=== PATIENT | male | born 1955 | race Caucasian/White ===

== ENCOUNTER → 2024-05-07 10:21 | Outpatient (REF) | payer MEDICARE, OTHER, SELFPAY | LOC: RCS 10:21 | PROVIDERS: ATTENDING PHYSICIAN Internal Medicine Cardiovascular Disease | DX: I35.0 Nonrheumatic aortic (valve) stenosis (principal) | CPT/HCPCS: 93306 ==

== ENCOUNTER 2024-08-07 06:15 | Day surgery (SDC) | payer MEDICARE, OTHER, SELFPAY ==
[2024-08-07] VITALS (17 sets, daily range): BP systolic 120–168; BP diastolic 70–92; BMI 28.0
[2024-08-07] MEDS: NSS 269 ML IV (07:00)
[2024-08-07 07:12] LABS: Hematocrit 38.4 % (39.0-52.0); Hemoglobin 13.3 g/dL (13.0-18.0); Mean Corp Hgb Conc. 34.6 g/dL (33.0-37.0); Mean Corpuscular Hgb 32.2 pg (27.0-31.0); Mean Platelet Volume 9.6 fL (7.4-10.4); Platelet Count 293 10^3/uL (130-400); Red Blood Cell Count 4.13 10^6/uL (4.70-6.10); Red Cell Dist. Width 12.8 % (11.5-14.5); White Blood Cell Count 10.8 10^3/uL (4.8-10.8)
[2024-08-07] MEDS: LOW STRENGTH ASPIRIN 324 MG PO (07:25)
--- NOTE | 2024-08-07 07:45 | ITS.CL.CATH ---
[facility] - Catheterization
Cardiac Catheterization
Procedure Report:
LEFT HEART CATHETERIZATION
Date of Procedure: August 07, 2024
Referring: Burt Steward MD
PROCEDURES:
1. Left heart catheterization, coronary angiogram.
2. Ultrasound-guided access
INDICATION: Mikal is a 69-year-old gentleman with past medical history of asthma, severe aortic stenosis who presents with progressive dyspnea on exertion for evaluation for TAVR versus SAVR. Echocardiogram from April 2024 shows normal LVEF of 55
to 60%, end-diastolic diameter 5.6 cm, peak and mean transaortic gradients of 99 and 56 mmHg, JUNIE 0.95cm2, PASP 36mmHg.
ACCESS:
1. Right radial artery, 6 Kyrgyz sheath, under ultrasound guidance. Given significant right subclavian artery tortuosity, this access was aborted and right common femoral arterial access was obtained.
2. Right common femoral artery, 6 Kyrgyz sheath, under ultrasound guidance using a micropuncture kit.
HEMODYNAMICS : (mmHg)
AO (s/d) : 113/68
CORONARY FINDINGS
DOMINANCE: Right
LEFT MAIN: The left main artery is a medium caliber vessel which gives rise to the left anterior descending artery and the left circumflex artery. There is moderate diffuse up to 40% plaque in the proximal to mid left main.
LEFT ANTERIOR DESCENDING: The left anterior descending artery is a medium to large caliber vessel which gives rise to 1 medium to large caliber diagonal branch as it courses to the anterior interventricular groove and wraps around the apex. There
is a 70-80% focal shelf-like calcified plaque in the mid LAD at the level of the takeoff of the diagonal branch.
CIRCUMFLEX: The left circumflex artery is a medium caliber vessel which gives rise to multiple small caliber obtuse marginal branches. Mid left circumflex just proximal to OM 3 has a smooth tubular 60% stenosis.
RIGHT CORONARY ARTERY: The right coronary artery is a large-caliber, dominant vessel which gives rise to the right posterior descending artery and the right posterolateral system. It has a high anterior takeoff which was very challenging to
selectively engage initially. We failed using a diagnostic 5 Kyrgyz JR4, 3 DRC, AL-1, MPA and an ARRON. At this point a aortogram was performed which showed its high anterior takeoff and a repeat selective angiogram was performed using a 6 Kyrgyz
AL-1 diagnostic catheter. There is mild to moderate diffuse plaque in the proximal RCA with 2 serial stenoses in the mid RCA. Proximal lesion in the mid RCA is about 70 to 80% stenosed with 30 to 40% stenosis distally.
SEDATION: 113 minutes of procedural sedation was utilized. An independent certified ophthalmic medical technician was present to assist with and help manage the patient's level of consciousness and physiologic status.
RADIATION SUMMARY: Fluoro Time (min): 29.6, Dose (mGy): 1357.6, DAP (Gy.cm2) : 88.4
Closure Device:
1. Vascular band over right radial artery, 12 cc of air.
2. Manual pressure was held over the right common femoral arterial access with successful hemostasis.
CONCLUSIONS
1. 73% focal calcified plaque in the mid LAD at the level of the takeoff of the diagonal branch.
2. Mid left circumflex, just proximal to OM 3, has a smooth tubular 60% stenosis.
3. Right coronary artery has a high anterior takeoff with a 70 to 80% stenosis in the mid RCA.
RECOMMENDATIONS
1. Proceed with CT of chest, abdomen and pelvis per TAVR protocol and CT surgery consult with subsequent discussion at the structural heart meeting in regards to TAVR plus PCI versus SAVR and CABG
2. Wean radial band per protocol.
3. Aggressive management of cardiovascular risk factors.
Copy to: Burt Steward MD
Yue Pitt MD, [facility], [facility]
[2024-08-07 07:49] LABS: ALT (SGPT) 19 U/L (0-50); AST (SGOT) 17 U/L (17-59); Albumin 3.7 g/dl (3.5-5.0); Alkaline Phosphatase 78 U/L (38-126); Blood Urea Nitrogen 25 mg/dl (9-20); Calcium 8.7 mg/dl (8.4-10.2); Carbon Dioxide 27 mmol/L (22-30); Chloride 107 mmol/L (98-107); Estimated Creatinine Clearance 82 ml/min; Glucose 126 mg/dl (70-99); Potassium 4.1 mmol/L (3.5-5.1); Sodium 139 mmol/L (135-145); Total Bilirubin 0.6 mg/dl (0.2-1.3); eGFR > 60.00
[2024-08-07 09:38] LABS: ACT-LR - POC 182 Seconds (116-155)
[2024-08-07] MEDS: NSS 1000 IV (10:15)
--- NOTE | 2024-08-07 11:57 | CONSULT.STRU ---
Consultation
-
Date/Time Consultation Requested: 08/07/2024
Date/Time Consultation Performed: 08/07/2024
Requesting Provider: Dr. Yue Pitt
Performing Provider: GARRETT Bhakta
Reason for Consultation: Aortic stenosis/CAD
Patient History
Physicians
Family Physician: Kay
Outpatient Ancillary Services Manager Therapy: Dr. Jacob Wilson
Primary Ancillary Services Manager Therapy: Dr. Jacob Wilson
History of Present Illness
Patient is a very pleasant 69yo male with known history of aortic stenosis who underwent cardiac cath today. He was found to have multivessel CAD. His echocardiogram from 05/07/2024 is notable for EF 55-60%, AV PG/M/56, JUNIE: 0.95, Peak
velocity:4.98, trace AI, mild MR. He denies palpitations, edema, PND or orthopnea. He has mild SAHA when going up two flights of stair but does note some chest tightness when he exerts himself. It does not radiate and is relieved with rest.
Reviewed the pathophysiology of aortic stenosis with the patient and his as well as his newly diagnosed multivessel CAD. Explained the treatment options of SAVR with CABG and TAVR with PCI. Explained the TAVR evaluation process including
follow up BMP, CT TAVR scan, CT surgery consult and Heart Team discussion. Provided with script for BMP next week, script and appointment for CT TAVR, Consult appointment with Dr. Morrell and a copy of the TAVR education booklet with contact
information. Allowed for and answered questions.
Past Medical History
Past Medical History: Asthma, BPH, CAD, SAHA (mild), Psychiatric (anxiety), Valvular Disease (Severe ) and Other (Essential tremor, BPH, Pre-diabetic, Arthritis, spinal stenosis, Thyroid goiter)
Past Surgical History
Past Surgical History: None
Dental History
Regular Dental Care. Last visit was last week, Dr. Chaya Galan
Family History
Mother: at Age (80s, Cancer)
Father: at Age (93yo, unknown cause)
Social History
Alcohol: Occasional
Drug: Marijuana (vapes and smokes)
Tobacco: Non-Smoker
Personal:
Living: With Spouse
Employment: Retired ([employer])
Allergies
Allergy/AdvReac Type Severity Reaction Status Date / Time
No Known Allergies Allergy Unverified 08/07/24 06:41
Home Medications
�Medication �Instructions �Recorded �Confirmed �Type
acetaminophen 325 mg tablet 650 mg PO Q4H PRN pain 08/07/24 08/07/24 History
(Tylenol)
albuterol 90 mcg/actuation aerosol 1 mcg inhalation Q4H PRN wheezing 08/07/24 08/07/24 History
inhaler
amlodipine 2.5 mg tablet 2.5 mg PO DAILY #90 tabs 08/07/24 Rx
aspirin 81 mg chewable tablet 81 mg PO DAILY #1 tab 08/07/24 Rx
atorvastatin 40 mg tablet 40 mg PO QPM #90 tabs 08/07/24 Rx
budesonide-formoterol HFA 160 2 puff inhalation ONCE 08/07/24 08/07/24 History
mcg-4.5 mcg/actuation aerosol
inhaler (Symbicort)
ibuprofen 200 mg tablet (Advil) 400 mg PO Q8H PRN pain 08/07/24 08/07/24 History
naproxen sodium 220 mg tablet 220 mg PO Q12H PRN pain 08/07/24 08/07/24 History
(Aleve)
pseudoephedrine HCl 120 mg 120 mg PO Q12H PRN nasal congestion 08/07/24 08/07/24 History
tablet,extended release (Sudafed
12 Hour)
tamsulosin 0.4 mg capsule 0.4 mg PO HS 08/07/24 08/07/24 History
STS%
STS %: AVR 0.951%, AVR/CAB.24%
Review of Systems
-
History Source: Patient
General: Reports Sleep Disturbance
HEENT: Reports No Symptoms; Denies Visual Changes
Respiratory: Reports SAHA (mild), Asthma and Other (seasonal allergies)
Cardiac: Reports Chest Pain (mild chest tightness with exertion) and CAD; Denies Palpitations, Nausea or Edema
Abdomen/GI: Reports No Symptoms; Denies Abdominal Pain, Reflux, Nausea, Vomiting or Diarrhea
: Reports Frequency and Nocturia
Musculoskeletal: Reports Joint Pain (arthritis bilateral knees) and Other (spinal stenosis, chronic back pain)
Skin: Reports No Symptoms
Neurological: Reports No Symptoms; Denies CVA, TIA, Headaches or Syncope
Vascular: Reports No Symptoms
Physical Exam
Vital Signs
Temp 97.7 F 08/07/24 07:23
Temp route: Temporal 08/07/24 07:23
Pulse 47 08/07/24 11:45
Resp Rate 18 08/07/24 11:45
Blood pressure 139/73 08/07/24 11:39
Blood pressure extremity used: Left upper arm 08/07/24 09:50
Position: Lying 08/07/24 09:50
MAP (cuff-Hector Monitor) 94 08/07/24 11:39
SaO2 98 08/07/24 11:53
Nasal Cannula flow liters per minute 2 08/07/24 10:03
Oxygen Mode of Delivery Room air 08/07/24 11:53
Can the patient verbally communicate their pain? Yes 08/07/24 11:53
Actual Weight 89.6 kg 08/07/24 06:39
Body Mass Index (BMI) 28.0 08/07/24 06:39
Labs
08/07/24 06:56
08/07/24 07:27
Diagnostic Studies
Echocardiogram 05/07/2024:
CONCLUSIONS
Normal left ventricular size, wall thickness and systolic function. No regional
wall motion abnormalities are seen. LV ejection fraction is 55-60% by visual
assessment. Diastolic function indeterminate.
Normal right ventricular size and function.
Severe aortic stenosis. Peak/mean gradients across the aortic valve are 99/56
mmHg. Using an LVOT diameter of 2.0 cm., the JUNIE = 0.95 cm2.
No prior study for comparison
Indications:
NONRHEUMATIC AORTIC (VALVE) STENOSIS
Rhythm: Bradycardia
Portable Study: No
Technical Quality: Good
Contrast: None
BP: 120 / 70
PROCEDURE
A complete Transthoracic Echocardiogram was performed utilizing two-dimensional
evaluation with color flow and spectral Doppler analysis.
FINDINGS
Left Ventricle
Normal left ventricular size, wall thickness and systolic function. No regional
wall motion abnormalities are seen. LV ejection fraction is 55-60% by visual
assessment. Diastolic function indeterminate.
Right Ventricle
Normal right ventricular size and function.
Left Atrium
Indexed LA volume is within normal range (15-34 mL/m2).
Right Atrium
Normal right atrium.
Mitral Valve
Thickened mitral valve leaflets. Mitral valve opens normally. Mild mitral
regurgitation.
Aortic Valve
Thickened and calcified aortic valve with restricted leaflet motion. Severe
aortic stenosis. Peak/mean gradients across the aortic valve are 99/56 mmHg.
Vmax 4.98 m/s. Using an LVOT diameter of 2.0 cm, the JUNIE = 0.95 cm2. Trace
aortic regurgitation.
Tricuspid Valve
Tricuspid valve opens normally. Mild tricuspid regurgitation. Estimated
pulmonary artery pressure of 36 mmHg, assuming a right atrial pressure of 3
mmHg.
Pulmonic Valve
Not well visualized.
Pericardium\\Pleura
Normal pericardium without effusion.
Aorta
The aortic root is of normal size.
Other Finding
The IVC is of normal size and demonstrates normal respiratory variation.
Interatrial septum is intact with no evidence of shunting by color flow
Doppler. No intracardiac mass or thrombus formation seen.
MEASUREMENTS (Male / Female) Normal Values
2D ECHO
LV Diastolic Diameter PLAX 5.6 cm 4.2 - 5.9 / 3.9 - 5.3 cm
LV Systolic Diameter PLAX 3.4 cm
IVS Diastolic Thickness 0.9 cm 0.6 - 1.0 / 0.6 - 0.9 cm
LVPW Diastolic Thickness 0.8 cm 0.6 - 1.0 / 0.6 - 0.9 cm
LV Relative Wall Thickness 0.3
LVOT Diameter 2.0 cm
LA Area 4C View 21.6 cm2 <= 20 cm2
LA Length 4C 5.9 cm
LA Volume 59.1 cm3 18 - 58 / 22 - 52 cm3
LA Volume Index 28.5 cm3/m2 16 - 34 cm3/m2
RV Diastolic Basal Diameter 3.4 cm 2.0 - 2.8 cm
M-MODE
LA Systolic Diameter MM 4.2 cm
DOPPLER
AV Peak Velocity 458.0 cm/s
AV Peak Gradient 83.9 mmHg
AV Mean Gradient 48.0 mmHg
AV Velocity Time Integral 90.9 cm
LVOT Peak Velocity 151.0 cm/s
LVOT Peak Gradient 9.1 mmHg
LVOT Velocity Time Integral 34.8 cm
LVOT Stroke Volume 109.3 cm3
LVOT Stroke Volume Index 52.5 ml/m2 empty
LVOT Cardiac Index 2937.5 cm3/min
AV Area Cont Eq vti 1.2 cm2
AV Area Cont Eq pk 1.0 cm2
MV Area PHT 3.5 cm2
Mitral E Point Velocity 61.7 cm/s
Mitral A Point Velocity 86.5 cm/s
Mitral E to A Ratio 0.7
LV E' Lateral Velocity 7.4 cm/s
Mitral E to LV E' Lateral Ratio 8.4
LV E' Septal Velocity 6.4 cm/s
Mitral E to LV E' Septal Ratio 9.6
TR Peak Velocity 286.0 cm/s
TR Peak Gradient 32.7 mmHg
Cardiac Catheterization 08/07/2024:
Multivessel CAD
Exam
General: Well Developed, Well Nourished, No Apparent Distress and Comfortable
HEENT: Moist Mucous Membranes, PERRLA and EOMI
Neck: Trachea Midline
Respiratory: Clear; Negative Wheezes, Crackles or Rhonchi
Cardiac: S1/S2, Regular Rhythm and Murmur (Grade III/)
GI: Soft, Non Tender, Non Distended and Normal Bowel Sounds
Rectal: Deferred by Provider
Skin: Warm and Dry
Neuro: AO x 3 and Nonfocal/Grossly Intact
Extremities: Pulses (+2 DP/PT pulses bilateral); Negative Lower Level Edema
Psych: Calm
Assessment / Plan
-
Procedure Type:�Isolated AVR
PERIOPERATIVE OUTCOME ESTIMATE %
Operative Mortality 0.951%
Morbidity & Mortality 4.25%
Stroke 0.825%
Renal Failure 0.585%
Reoperation 2.53%
Prolonged Ventilation 2.39%
Deep Sternal Wound Infection 0.067%
Long Hospital Stay (>14 days) 3.42%
Short Hospital Stay (<6 days)* 58.7%
Procedure Type:�CABG + AVR
PERIOPERATIVE OUTCOME ESTIMATE %
Operative Mortality 1.24%
Morbidity & Mortality 7.12%
Stroke 1.26%
Renal Failure 1.43%
Reoperation 3.3%
Prolonged Ventilation 4.38%
Deep Sternal Wound Infection 0.122%
Long Hospital Stay (>14 days) 3.47%
Short Hospital Stay (<6 days)* 49%
Severe Aortic stenosis:
����������� Continue evaluation for TAVR
����������� BMP 08/14/2024 at [facility]
����������� CT TAVR scan 08/22/2024 at 0930 at
����������� CT surgery consult with Dr. Morrell 08/28/2024
Dental Clearance
����������� Heart team discussion at [facility]
Multivessel Coronary Artery disease:
Heart Healthy Diet
ASA/Statin ordered by Cardiology
Review cardiac cath with heart team to discuss CABG vs PCI
Data Reviewed
-
EKG: Report Reviewed by me (no conduction issues)
Tobacco Curer: Discussed with Physician
Echo: Report Reviewed by me
Labs: Labs Reviewed by me
Old Records: Reviewed (Cardiology office notes)
Total Time Spent with Patient (in minutes): 30
== END 2024-08-07 14:10 | disposition home or self-care (01) ==
LOC: CATH 06:15
PROVIDERS: ATTENDING PHYSICIAN Internal Medicine Interventional Cardiology; OTHER PHYSICIAN Internal Medicine Cardiovascular Disease
DX: I25.10 Atherosclerotic heart disease of native coronary artery without angina pectoris (principal); I35.0 Nonrheumatic aortic (valve) stenosis; R06.09 Other forms of dyspnea; J45.909 Unspecified asthma, uncomplicated; R73.03 Prediabetes; N40.0 Benign prostatic hyperplasia without lower urinary tract symptoms; G25.0 Essential tremor; Z79.82 Long term (current) use of aspirin; Z79.51 Long term (current) use of inhaled steroids
CPT/HCPCS: 99152; 99153; C1894; 80053; 85027; 85347; 93005; 93458; Q9967

== ENCOUNTER → 2024-08-11 10:23 | Outpatient (REF) | payer MEDICARE, OTHER, SELFPAY | LOC: RAD 10:23 | PROVIDERS: ATTENDING PHYSICIAN Internal Medicine Interventional Cardiology | DX: I72.9 Aneurysm of unspecified site (principal); G89.18 Other acute postprocedural pain; I35.0 Nonrheumatic aortic (valve) stenosis | CPT/HCPCS: 93926 ==

== ENCOUNTER → 2024-08-22 09:15 | Outpatient (REF) | payer MEDICARE, OTHER, SELFPAY | LOC: RAD 09:15 | PROVIDERS: ATTENDING PHYSICIAN Nurse Practitioner Adult Health | DX: I35.0 Nonrheumatic aortic (valve) stenosis (principal) | CPT/HCPCS: 74174; 75572; Q9967 ==

== ENCOUNTER → 2024-09-16 09:59 | Outpatient (REF) | payer MEDICARE, OTHER, SELFPAY | LOC: RAD 09:59 | PROVIDERS: ATTENDING PHYSICIAN Internal Medicine Endocrinology, Diabetes & Metabolism | DX: E04.9 Nontoxic goiter, unspecified (principal) | CPT/HCPCS: 76536 ==

== ENCOUNTER 2024-10-06 05:03 | Inpatient (IN) | payer MEDICARE, OTHER, SELFPAY ==
[2024-09-29 08:47] VITALS: BMI 28.8
[2024-09-29 09:36] LABS: % Basophils 0.4 % (0-2); % Eosinophils 2.5 % (0-6); % Immature Granulocytes 0.5 % (0-0.5); % Lymphocytes 12.6 % (20.5-51.1); Absolute Eosinophils 0.2 10^3/uL (0-0.7); Absolute Lymphocytes 1.1 10^3/uL (1.2-3.4); Absolute Monocytes 0.5 10^3/uL (0.1-0.6); Absolute Neutrophils 6.5 10^3/uL (1.4-6.5); Hematocrit 40.4 % (39.0-52.0); Hemoglobin 13.6 g/dL (13.0-18.0); Mean Corp Hgb Conc. 33.7 g/dL (33.0-37.0); Mean Corpuscular Hgb 32.2 pg (27.0-31.0); Mean Corpuscular Volume 95.7 fL (80.0-94.0); Mean Platelet Volume 9.8 fL (7.4-10.4); Nucleated Red Blood Cells % 0 % (-); Platelet Count 285 10^3/uL (130-400); Red Blood Cell Count 4.22 10^6/uL (4.70-6.10); Red Cell Dist. Width 12.2 % (11.5-14.5); White Blood Cell Count 8.4 10^3/uL (4.8-10.8)
[2024-09-29 09:44] LABS: INR 1.08; PT 14.3 Sec (11.4-14.6)
[2024-09-29 09:45] LABS: APTT 28.5 Sec (23.4-35.0)
[2024-09-29 10:04] LABS: ALT (SGPT) 20 U/L (0-50); AST (SGOT) 21 U/L (17-59); Alkaline Phosphatase 83 U/L (38-126); Blood Urea Nitrogen 24 mg/dl (9-20); Carbon Dioxide 26 mmol/L (22-30); Chloride 105 mmol/L (98-107); Direct Bilirubin 0.1 mg/dl (0.0-0.4); Estimated Creatinine Clearance 79 ml/min; Glucose 111 mg/dl (70-99); Potassium 4.9 mmol/L (3.5-5.1); Sodium 140 mmol/L (135-145); Total Bilirubin 0.7 mg/dl (0.2-1.3); Total Protein 6.5 g/dl (6.3-8.2); eGFR > 60.00
[2024-09-29 10:09] LABS: Urine Albumin Negative (Neg - Trace); Urine Bilirubin Negative (Negative); Urine Character Clear (Clear); Urine Color Yellow; Urine Glucose Negative (Negative); Urine Ketone Negative (Negative); Urine Leukocyte Negative (Negative); Urine Nitrite Negative (Negative); Urine Occult Blood Negative (Negative); Urine Urobilinogen Negative (Neg - 1+)
[2024-09-29 10:33] LABS: Glycohemoglobin (HgbA1c) 5.6 % (4.0-5.6)
--- NOTE | 2024-09-29 12:37 | CM ---
spoke with pt in PAT, we discussed preop teaching including sternal and driving restrictions. he is prev indep, lives with his in a 2 story home with 1 step to enter. he denies any dme's. he has the ct surgery book, soap and instructions. he is
agreeable to a f/u visit from the ct transitional care nurses after dc. plan is for AVR/CABG 10/06. cm role explained and all questions answered.
[2024-10-06] VITALS (12 sets, daily range): BP systolic 88–154; BP diastolic 55–91; BMI 27.5
[2024-10-06] MEDS: PROTONIX 40 MG PO (05:40)
[2024-10-06] MEDS: LOPRESSOR 25 MG PO (05:40)
[2024-10-06] MEDS: MAGNESIUM OXIDE 500 MG PO (05:40)
[2024-10-06] MEDS: BACTROBAN 2% OINTMENT 1 APPLIC NASAL ×2 (05:40→19:32)
--- NOTE | 2024-10-06 06:00 | PTCARENOTE ---
Pt arrived to CVICU for SDA, CABG, AVR. pt was clipped, ABO lab drawn, CHG wipes provided, x2 home showers confirmed. Pt answered all admission questions. home medications confirmed. pre-op medications administered. all jewelry removed and given to
pt's . copy of living will placed in paper chart. pre-op checklist reviewed with pt. at bedside. awaiting CVOR.
--- NOTE | 2024-10-06 06:13 | W.CVOR.SURPR ---
CVOR Surgeon Immed Pre Op
-
I have examined this patient prior to performance of the scheduled procedure.
The patient's condition is unchanged from the time of the dictated/written History and
Physical and the patient is able to undergo the scheduled procedure.
Sternotomy AVR (bio) poss root enlargement, CABG + JAKE Clip
[2024-10-06 06:58] LABS: ACT+ - POC 101 Seconds (82-134)
[2024-10-06 07:50] LABS: Urine Albumin Trace (Neg - Trace); Urine Bilirubin Negative (Negative); Urine Character Clear (Clear); Urine Color Yellow; Urine Glucose Negative (Negative); Urine Ketone Negative (Negative); Urine Leukocyte Negative (Negative); Urine Nitrite Negative (Negative); Urine Occult Blood 4+ (Negative); Urine Specific Gravity 1.025 (<1.030); Urine Urobilinogen Negative (Neg - 1+)
[2024-10-06 08:27] LABS: Urine Amorphous Seen
[2024-10-06 08:29] LABS: Urine White Cell 0-2 /HPF (0-5)
--- NOTE | 2024-10-06 08:34 | CM ---
Reviewed chart. Mr. Brandon is in the operating room today. Prior to admission he resides with his spouse in a two story home with one step to enter. Prior to admission he was independent with ambulation and adls. He does not have any DME in the
home. Medical work-up in progress. The discharge plan is to return home with his spouse and a home visit by the Transitional Care Nurse when medically stable.
[2024-10-06 09:16] LABS: ACT+ - POC 565 Seconds (82-134)
[2024-10-06 09:33] LABS: B.E. - POC 2.2 mmol/L; Glucose - POC 120 mg/dl (70-99); HCO3 - POC 29 mmol/L (21-28); Hematocrit - POC 39 % PCV (42-52); Hemodilution- POC Yes; Hemoglobin Calculated - POC 13.2; Ionized Calcium - POC 1.24 mmol/L (1.15-1.33); O2 Saturation %Calculated-POC 99.8 % (94-98); PCO2 - POC 52 mmHg (35-48); PO2 - POC 265 mmHg (83-108); POC Comment PRE; Potassium - POC 3.9 mmol/L (3.5-5.1); Sodium - POC 142 mmol/L (136-145); pH - POC 7.36 (7.35-7.45)
[2024-10-06 09:46] LABS: ACT+ - POC 682 Seconds (82-134)
[2024-10-06 10:04] LABS: B.E. - POC 2.3 mmol/L; Glucose - POC 176 mg/dl (70-99); HCO3 - POC 28 mmol/L (21-28); Hematocrit - POC 27 % PCV (42-52); Hemodilution- POC Yes; Hemoglobin Calculated - POC 9.3; Ionized Calcium - POC 1.05 mmol/L (1.15-1.33); O2 Saturation %Calculated-POC 99.6 % (94-98); PCO2 - POC 46 mmHg (35-48); PO2 - POC 190 mmHg (83-108); POC Comment CPB; Potassium - POC 5.4 mmol/L (3.5-5.1); Sodium - POC 138 mmol/L (136-145); pH - POC 7.39 (7.35-7.45)
[2024-10-06 10:16] LABS: ACT+ - POC 614 Seconds (82-134)
[2024-10-06 10:34] LABS: Glucose - POC 170 mg/dl (70-99); HCO3 - POC 26 mmol/L (21-28); Hematocrit - POC 36 % PCV (42-52); Hemodilution- POC Yes; Hemoglobin Calculated - POC 12.2; Ionized Calcium - POC 1.11 mmol/L (1.15-1.33); O2 Saturation %Calculated-POC 99.8 % (94-98); PCO2 - POC 42 mmHg (35-48); PO2 - POC 232 mmHg (83-108); POC Comment CPB; Potassium - POC 4.5 mmol/L (3.5-5.1); Sodium - POC 140 mmol/L (136-145)
[2024-10-06 10:47] LABS: ACT+ - POC 647 Seconds (82-134)
[2024-10-06 11:21] LABS: B.E. - POC 1.4 mmol/L; Glucose - POC 146 mg/dl (70-99); HCO3 - POC 25 mmol/L (21-28); Hematocrit - POC 35 % PCV (42-52); Hemodilution- POC Yes; Ionized Calcium - POC 1.09 mmol/L (1.15-1.33); PCO2 - POC 33 mmHg (35-48); PO2 - POC 373 mmHg (83-108); POC Comment WARM; Potassium - POC 4.1 mmol/L (3.5-5.1); Sodium - POC 141 mmol/L (136-145); pH - POC 7.48 (7.35-7.45)
[2024-10-06 11:24] LABS: ACT+ - POC 131 Seconds (82-134)
[2024-10-06] MEDS: ANCEF 10 IV ×2 (11:31)
[2024-10-06 11:37] LABS: ACT+ - POC 353 Seconds (82-134)
[2024-10-06 11:58] LABS: B.E. - POC -0.1 mmol/L; Glucose - POC 123 mg/dl (70-99); HCO3 - POC 27 mmol/L (21-28); Hematocrit - POC 31 % PCV (42-52); Hemodilution- POC Yes; Hemoglobin Calculated - POC 10.6; Ionized Calcium - POC 1.44 mmol/L (1.15-1.33); O2 Saturation %Calculated-POC 99.7 % (94-98); PCO2 - POC 55 mmHg (35-48); PO2 - POC 229 mmHg (83-108); POC Comment POST; Potassium - POC 3.8 mmol/L (3.5-5.1); Sodium - POC 143 mmol/L (136-145)
[2024-10-06 12:01] LABS: ACT+ - POC 164 Seconds (82-134)
--- NOTE | 2024-10-06 12:36 | W.PN.CT.SURG ---
CT Surgery Operative Note
-
CARDIAC SURGERY OPERATIVE REPORT
Preoperative Diagnosis: Aortic valve stenosis with multivessel coronary artery disease
Postoperative Diagnosis: Same
Procedure(s) Performed:
1. Status from with aortic and right atrial cannulation
2. Coronary artery bypass grafting x 2 (In situ BURNS to LAD -with revision of BURNS to LAD bypass more distally, Ao to RSVG to RPDA)
3. Surgical aortic valve replacement [27 mm bioprosthetic valve]
4. Endoscopic harvest of the right lower extremity for vein
5. Trans-esophageal echocardiography
6. Placement temperature with pacing wire
7. Transonic flow probe assessment of grafts
8. Left atrial appendage exclusion [35 mm clip]
Date of Surgery: 10/06/2024
Comorbidities:
1. Severe aortic valve stenosis, symptomatic
2. Multivessel coronary disease involving bifurcation of the LAD and diagonal
3. 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
4. Prediabetes
5. Asthma
6. Extremely large thyroid goiter
7. CAD
8. Anxiety
9. Arthritis
10. Spinal stenosis
Attending Surgeon: Alan Morrell MD, MS
Assistants: Rossana Cheng PA-C (present and necessary to plant attendant or assistant operator, suction, exposure, suture management, and wound closure under my direction) & Nery Martinez PA-C (endo vein harvest)
Anesthesiology: Fredrick Corona MD and Kong Arevalo CRNA
Scrub and Circulating RNs: Nj Benavides, NELA, Valdez Galindo RN
Greenhouse Florist: Natalie Carmichael CCP
Anesthesia: GETA
EBL: per perfusion records
Products: None, just 2 bowls of scavenged blood (cell saver)
CPB Time: 105 minutes
Aortic Cross Clamp Time: 86 minutes
Indication(s) for Procedures: This is a 69-year-old male with severe aortic valve stenosis. As part of his preoperative workup he underwent left heart cath which for multivessel coronary disease. The appearance of his LPL branch of the left side
system was extremely small and he would likely need just 2 bypass grafts as his right coronary artery was dominant and supplied a significant portion of the inferior wall. Multidisciplinary team discussion at our structural heart clinic deemed him
appropriate for surgical valve replacement with CABG with possible plans for future TAVR in [facility]. He had a relatively small annulus by TAVR CT however given the appearance of his bicuspid valve and my own individual measurement I felt that he had a
much larger annulus.
Aortic Valve Description: Bicuspid valve, type I Perla classification with left right fusion, elliptical shaped annulus with left and right coronary arteries in their normal anatomic positions. There was a moderate degree of calcification
infiltrating into the annulus.
Conduit(s) Quality:
BURNS -average/small in size however there was good flow, the distal end of the BURNS was dissected after grafting onto the LAD after the diagonal bifurcation and so this was redone more distally with excellent flow
RSVG -good/relatively uniform with some varicosities but overall good conduit
Target(s) Quality:
RCA/PDA -good/eccentric plaque, accommodated a 1.5 to 2 mm probe. There is excellent flow with test dosing of antegrade revealing a flow of approximately 50 cc at a pressure of 80 mmHg. Flow probe assessment demonstrated a mean flow in the mid 30s
with a low pulsatility index
LAD -although there was good visual flow in the LAD, it was quite a small target accommodating only a 1.0 to 1.5 mm shunt. I initially grafted the BURNS to LAD just after the diagonal bifurcation. Initially there was good visual flow in the LAD
territory however coming off of cardiopulmonary bypass and using the Transonic flow probe there was minimal flow with a very high pulsatility index. My visual inspection of the graft was suspicious for a dissection at the distal hodgson and so I
elected to give a low dose of heparin ligate the distal BURNS graft and tested. There is excellent flow in the habematolel BURNS graft. A small coronary arteriotomy was then made more distal to the previous anastomosis and there was decent flow in the
habematolel LAD. I then performed a new end-to-side distal anastomosis and retested with the flow probe. There was much better mean flow in the high teens to mid 20s with a lower pulsatility index.
Findings: LVEF on intraoperative JOJO was 65% and 65% post procedure with no regional wall motion abnormalities. There was trace prosthetic PVL or AI with a pressure half-time the 700s. Mean gradient across the prosthesis was 8 mmHg. aortic valve was
a type I Perla classification with left right fusion. The left right coronary ostium with normal anatomic positions. There was moderate degree of infiltration of calcium to the annulus. The ends itself was an oblique/elliptical shape. Were
able to accommodate a 27 mm bioprosthesis. The LVOT did narrow down according to the TAVR CT scan. The aortic valve was implanted using a total of 16 nonpledgeted 2 Ethibond sutures with core knots. The BURNS was harvested in a skeletonized
fashion. Following bypass grafting, test dose cardioplegia was given down each distal and confirmed patency and hemostasis. Each distal was probed both proximally and distally to confirm disease and patency, respectively. There were no new regional
wall motion abnormalities. However, coming off cardiopulmonary bypass I used the Transonic flow probe to assess the grafts. There is excellent flow in the vein graft. There was little to no flow in the BURNS graft. Normal approximately in all way
down to the midportion. On further evaluation at the distal end there appeared to be a dissection at the hodgson of the graft. This was not satisfactory and so I elected to reheparinized and used 2 medium clips to ligate the distal BURNS graft and
transected. A bulldog was replaced onto the proximal BURNS graft and then released which revealed excellent habematolel flow in the BURNS graft. A small coronary arteriotomy was then created and a 1.0 mm shunt was inserted into the LAD. There is
excellent habematolel flow in the LAD vessel. A new end-to-side anastomosis was created with 8-0 Prolene and secured with a micro core knot. Reassessment with a flow probe demonstrated a mean flow in the high teens to 20 mmHg with a lower pulsatility
index of 4. He had no significant ST changes, did not require any blood products, we were able to scavenged approximately 2 bowls of Cell Saver blood from the field. He did not require any inotropic support. He was initially in a heart block
rhythm and then regained his own habematolel sinus rhythm in the 50s and was hemodynamically stable there.
Specimen(s): Aortic valve leaflets.
Prosthesis:
1. 35 mm clip, serial number: [id number].
2. 27 mm Marcus Inspiris Resilia valve, serial #[id number]
Description of Procedure: The patient was taken to the operating room. Their identity and procedure to be performed were verified and they were positioned supine on the operating table. Induction via general anesthesia with endotracheal intubation
was performed and central venous access and arterial monitoring were inserted. A preoperative transesophageal echocardiogram was performed. The patient was then prepped and draped from chin to feet in a sterile fashion. A preoperative time-out was
performed with all members of the team present. A midline chest incision was performed along with median sternotomy. Simultaneous endoscopic access of the right lower extremity for saphenous vein harvest was obtained along with administration of an
initial 5,000 units of IV heparin. A RulTract sternal retractor was positioned to exposure the left internal mammary bed. The mammary was harvested in a skeletonized fashion and found to have good flow. A medium clip was applied to the distal end of
the mammary after dividing it. It was wrapped in a papaverine soaked RayTec and replaced back into the left hemithorax. The RulTract was exchanged for a median sternal retractor. The innominate vein was isolated. Full heparinization was given (a
total of 40,000 units). I created a pericardial well. The aortic cannulation site was chosen where it was soft, pliable, and free of calcium. Cannulation was performed with an arterial cannula in the ascending aorta and a triple-stage venous cannula
through the right atrial appendage. The arterial cannula line had an appropriate bounce and correlating pressures with test dosing. Next, a root vent/antegrade cannula was inserted into the ascending aorta. The ACT was confirmed to be over 400 and
retrograde autologous priming was performed before commencing cardiopulmonary bypass. The pulmonary artery was away from the aorta to facilitate a clamp site. The aortic cross-clamp was placed after decreasing the flow on the bypass and
mean arterial pressure. A total of 1.2L initial dose of antegrade Del-Nido cardioplegia solution was given and planned for re-dosing every 75 minutes as necessary. There was rapid electro-mechanical arrest of the heart at 400 cc of cardioplegia. The
left ventricle was observed for distention on echocardiogram and manual palpation. Cold slush was placed into a sponge and topically on the RV while we systemically cooled to 34 degrees centigrade.
I positioned the heart to expose the distal right coronary at the posterior descending artery. A muckleshoot blade was used to expose the coronary and perform the arteriotomy. Coronary Nava scissors were used to enlarge the incision. The saphenous vein
was trimmed and beveled to an appropriate size. The distal anastomosis was performed using 7-0 prolene in an end-to-side fashion. Antegrade cardioplegia was administered into the graft. Appropriate hemostasis and flow were confirmed. The graft was
measured for length to the aorta and cut. A suitable target on the mid/distal left anterior descending just after the diagonal takeoff was identified. We dissected and prepared the distal target in a similar fashion. We retrieved the BURNS from the
chest and created a pericardial opening while being cognizant of the phrenic nerve to facilitate the course of the mammary. The distal end of the mammary was prepped and beveled to size. We verified orientation and length of the ARRON and found brisk
flow. An end-to-side anastomosis was created with a 7-0 prolene. We temporarily released the bulldog clamp on the mammary to inspect flow. Perfusion to the LAD territory was visualized and hemostasis was confirmed. The bull clamp was replaced on the
mammary.
Carbon dioxide was used to flood the field. I turned my attention to the aortic valve and manually identified the location of the right coronary take off. An aortotomy was made approximately 1.5cm above the sinotubular junction. The location of both
left and right coronary vessels were visualized in the root. The aortic valve was inspected and found to be heavily calcified. The leaflets were excised and sent for pathological assessment. The annulus was debrided of any calcium. The root and left
ventricular outflow tract were thoroughly irrigated to remove any debris. A total of 16, nonpledgeted 2-0 ethibond annular sutures were placed [id number] circumferentially. These were brought through the sewing cuff of the prosthetic valve which
as then parachuted into place. The left and right coronary ostia were visualized and were unobstructed by the valve. A Cor-Knot device was used to secure the annular sutures. The valve was inspected and was well seated. The aortotomy was
approximated with 4-0 prolene in two layers. The heart was filled and the root was distended with antegrade cardioplegia to make final assessment of graft length and orientation. I created 1 aortotomy using a #11 blade then a 4.0mm aortic punch
above the aortic suture line. The proximal anastomoses were created in an end-to-side fashion using 6-0 prolene. At the same time, we started to re-warm to 36.5 degrees centigrade. The bulldog clamp was removed from the mammary and temporary bipolar
ventricular pacing wires were placed on the base of the right ventricle. The patient was placed in a Trendelenburg position and flows on bypass were lowered. The aortic cross clamp was removed and flows were slowly brought back up. The aortotomy
appeared hemostatic. All bypass grafts were inspected and were free from kinking or twisting. The distal and proximal anastomoses appeared hemostatic. De-airing maneuvers were performed. Transesophageal echocardiography revealed no significant
paravalvular leak and appropriate prosthetic function. Once de-airing was satisfactory, the root vent was removed. After verifying acceptable parameters, we initiated weaning from cardiopulmonary bypass. Once we were off cardiopulmonary bypass, the
venous cannulas was clamped and removed. A test dose of protamine was administered and the patient was monitored for any adverse reaction before resuming protamine. Once half of the protamine dose was delivered, pump suckers were turned off and the
systolic blood pressure was lowered for aortic decannulation. The aortic cannula was removed and pursestrings were tied down. All cannulation sites were oversewn with a 4-0 prolene. The aortic line, proximal, and distal coronary anastomoses were
hemostatic. Transonic flow probe was used to assess the graft which had excellent flow in the vein graft. There was very marginal if any flow in the BURNS graft. Elected to give an additional 20,000 units of heparin at this point and target an ACT
of over 300. I then placed an off-pump retractor to expose the LAD at the BURNS anastomosis. This was then clipped and transected which demonstrated excellent flow in the habematolel BURNS graft. There was very likely a small dissection at the hodgson
obstructing flow. More distally to the previous anastomosis a small coronary tree artery was created and enlarged with Nava scissors. There is excellent flow in the habematolel vessel. This fit a 1.0 mm shunt. A new end to side anastomosis was
created 8-0 Prolene and secured the micro core knot. Transonic flow probe assessment of the BURNS now hide more more appropriate flows. At this point we resumed giving protamine to reverse the heparin effect. The mammary bed was inspected and
hemostasis was confirmed. Once the mediastinum was hemostatic, a 19Fr Jeff drain was placed in the left pleural cavity and two 24Fr Jeff drains were placed within the pericardium. The sternum was approximated with 4#7 single and 3 #8 double
stainless steel wires. Fascia was approximated with #1 vicryl suture. The subcutaneous, dermis and epidermis were closed in layers in a running fashion. The skin wound was cleansed and dressed.
All instrument, sponge, and needle counts were confirmed to be correct x 2 at the end of the operation. The patient was transferred to the cardiac intensive care unit in critical but stable condition.
I, Dr. Alan Morrell, was present, scrubbed for, and performed all critical elements of this procedure.
Alan Morrell MD, MS
Cardiothoracic Surgeon
[facility]
This operative dictation was created using the Palm dictation system. Please excuse any grammatical, typographical, or 'sound alike' errors
[2024-10-06 12:50] LABS: Glucose - Point of Care 122 mg/dl (70-99)
[2024-10-06 12:57] LABS: Hemoglobin 10.5 g/dL (13.0-18.0); Platelet Count 179 10^3/uL (130-400)
[2024-10-06 12:58] LABS: B.E. 0.9 mmol/L; HCO3 26.6 mmol/L (21-28); Ionized Calcium 1.15 mMOL/L (1.15-1.33); O2 Saturation % 99.8 % (94-98); PCO2 46 mmHg (35-48); PO2 137 mmHg (83-108); Potassium 4.3 mMOL/L (3.5-5.1); Sodium 136 mMOL/L (136-145); pH 7.37 (7.35-7.45)
--- NOTE | 2024-10-06 13:00 | PTCARENOTE ---
Pt arrived from CV[facility] to CVICU at 1245. Intubated and sedated on Precedex at 0.5mcg/kg/hr. Pt SB with HR 48. BP 112/48 MAP 63. Currently on Levo at 6mcg/min. PA 34/17, CVP 8, CO 4.06, CI 2.03, SVR 1182. Epicardial V wire connected, box off. Core temp
97, Clive hugger in place. #8ET tube in place at 23cm right lip. Oral care completed. Vent set to SIMV, FiO2 40%, rate 14, PEEP 5, Pressure support 5, TV 600. Pulse oximetry 100%. Mediastinal CT (x2) and left pleural chest tube in place to -20
suction, no sign of air leak or crepitus, drainage red in color. Bowel sounds hypoactive. Clay catheter in place draining yellow urine. Clay care competed. Midsternal incision approximated and IVÁN. Right leg incision with NICKI wrap overlay in
place. Right groin puncture approximated and WHEEL MOLDER. Right IJ cordis in place with Kearny Bakari catheter at 48cm. Left radial Wykoff intact. Pt remains on insulin gtt per glycemic protocol. Post-op labs collected. Post-op EKG and X-ray completed.
[2024-10-06 13:04] LABS: Mixed Venous O2 Saturation 70.6 %
[2024-10-06 13:08] LABS: Blood Urea Nitrogen 19 mg/dl (9-20); Estimated Creatinine Clearance 88 ml/min; Glucose 118 mg/dl (70-99); Magnesium 2.5 mg/dl (1.6-2.3)
[2024-10-06 13:11] LABS: INR 1.72; PT 20.4 Sec (11.4-14.6)
[2024-10-06 13:12] LABS: APTT 34.7 Sec (23.4-35.0)
[2024-10-06] MEDS: NSS 500 IV (13:44)
[2024-10-06] MEDS: CALCIUM GLUCONATE 100 IV ×3 (13:44→21:02)
[2024-10-06] MEDS: NEURONTIN PO (13:45)
[2024-10-06] MEDS: TYLENOL PO (13:45)
[2024-10-06 14:14] LABS: Glucose - Point of Care 104 mg/dl (70-99)
--- NOTE | 2024-10-06 14:44 | CON.INTV ---
Consultation
Consultation Request
Date/Time Consultation Requested: 10/06/24
Date/Time Consultation Performed: 10/06/24
Performing Provider: Joann
Reason for Consultation: CVICU
Medical History
-
History of Present Illness:
Patient is a 69-year-old male with previous history of CAD, severe aortic stenosis with symptoms of shortness of breath and fatigue presenting for elective intervention. Outpatient workup demonstrating progression of valve disease with clinical
status deterioration. Underwent bypass surgery x 2 with surgical aortic valve replacement with bioprosthetic valve on 10/06/2024. Tolerated procedure well. Postoperatively transferred to CVICU for further management.
Past Medical History
Past Medical History: Other (see list below)
Social History
Tobacco: Non-smoker
Alcohol: None
Drug: None
Family History
Family History: Reviewed & Not Pertinent
Allergies / Home Medications
Allergies
Allergy/AdvReac Type Severity Reaction Status Date / Time
No Known Allergies Allergy Unverified 08/07/24 06:41
Home Medications
�Medication �Instructions �Recorded �Confirmed �Last Taken �Type
acetaminophen 325 mg tablet 650 mg PO Q4H PRN pain 08/07/24 10/06/24 10/05/24 22:00 History
(Tylenol)
budesonide-formoterol HFA 160 2 puff inhalation ONCE 08/07/24 10/06/24 10/06/24 04:00 History
mcg-4.5 mcg/actuation aerosol Lung/Breathing Issues
inhaler (Symbicort)
ibuprofen 200 mg tablet (Advil) 400 mg PO Q8H PRN pain 08/07/24 10/06/24 10/01/24 22:00 History
naproxen sodium 220 mg tablet 220 mg PO Q12H PRN pain 08/07/24 10/06/24 09/30/24 22:00 History
(Aleve)
pseudoephedrine HCl 120 mg 120 mg PO PRN PRN nasal congestion 08/07/24 10/06/24 09/29/24 22:00 History
tablet,extended release (Sudafed
12 Hour)
tamsulosin 0.4 mg capsule 0.4 mg PO HS Urinary Issue 08/07/24 10/06/24 10/05/24 22:00 History
albuterol sulfate 90 mcg/actuation 2 puff inhalation Q6H PRN asthma 09/25/24 10/06/24 10/05/24 22:00 History
aerosol inhaler
amlodipine 2.5 mg tablet 2.5 mg PO HS Blood Pressure 09/25/24 10/06/24 10/03/24 21:00 History
aspirin 81 mg chewable tablet 81 mg PO HS Blood Clot 09/25/24 10/06/24 10/05/24 22:00 History
Prevention/Tx
methimazole 5 mg tablet 2.5 mg PO DAILY Thyroid 09/25/24 10/06/24 10/05/24 22:00 History
atorvastatin 40 mg tablet 40 mg PO QPM High Cholesterol 10/06/24 10/06/24 10/05/24 22:00 History
Review of Systems
-
History Source: Patient
All other systems: Negative unless noted
Vitals / Labs / Diagnostic Testing
Vital Signs
Temp Pulse Resp BP Pulse Ox
98.4 F 48 14 154/91 100
10/06/24 14:00 10/06/24 14:00 10/06/24 14:00 10/06/24 05:37 10/06/24 14:40
Lab Data
10/06/24 12:40
Laboratory Results
10/06/24
12:40
PT 20.4 H
INR 1.72
APTT 34.7
pH 7.37
pCO2 46
pO2 137 H
HCO3 26.6
O2 Delivery Level
Diagnostic Testing:
Physical Exam
-
HEENT: Normocephalic, Anicteric and Moist Mucous Membranes
Cardiovascular: S1/S2 and Regular Rhythm
Respiratory: Clear, Non-Labored Respirations and Other (chest tubes)
GI: Soft, Non Distended and Normal Bowel Sounds
Neurology: Awake, Alert, Oriented, No Motor Deficits and Other (extubated, doing well)
Skin: Warm, Dry and Other (incision CDI)
General: Comfortable, Pain and Other (NAD)
Assessment
-
Patient is a 69-year-old male with previous history of CAD, severe aortic stenosis with symptoms of shortness of breath and fatigue presenting for elective intervention. Outpatient workup demonstrating progression of valve disease with clinical
status deterioration. Underwent bypass surgery x 2 with surgical aortic valve replacement with bioprosthetic valve on 10/06/2024. Tolerated procedure well. Postoperatively transferred to CVICU for further management.
Severe status post AVR, MV CAD status post CABG x 2 10/06/24
Shortness of breath/fatigue
Postoperative anemia
Small PFO on ECHO, stage II DD
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
Prediabetes
Asthma
Elevated PSA
Thyroid goiter
Anxiety
Spinal stenosis
Arthritis
Plan
S/p Cab x 2, AVR POD #0
Titrate off pressors per protocol
ECHO reviewed with normal function, but has diastolic dysfunction/moderate LVH, small PFO
PA catheter readings reviewed
Management of chest tubes per primary service
Pain control
RASS goal of 0 to -1
Intubated for procedure, extubated and doing well
ABG(s) reviewed
CXR with small effusion, low lung volumes, lines/tubes in place
Extubated per protocol
Maintain supplement oxygen as needed
Prior history of pulmonary disease: asthma/controlled on symbicort/albuterol
No prior PFTs for review
Can resume home inhalers/add nebulizers if needed
Aspiration precautions
Encouraged incentive spirometry, OOB/ambulation/early mobility
Advance diet as tolerated following extubation
GI prophylaxis if indicated for mechanical ventilation >48 hours
Monitor critical I/O's
Clay/chest tube output
Hb/platelets postoperatively stable
Trend CBC for now
Can transfuse if indicated for Hb <7, plt <50 in surgical patients
DVT prophylaxis including SCDs
Insulin protocol initiated and ongoing
Transition to SQ/off as indicated per team
Thyroid goiter noted, observe airway overnight post extubation
We will follow
Diagnostic Data
Chest X-Ray: 10/06/24-Small loculated left pleural effusion. Bilateral atelectasis versus scarring.
CT Scan: CHEST/cardiac 08/22/24- The thyroid gland is significantly enlarged with extension into the upper chest posterior to the esophagus and slightly greater extension into the right side of the mediastinum when compared to the left. There is
associated calcifications. Findings are compatible with a significantly enlarged multinodular thyroid. The thyroid gland measures at least 13 cm craniocaudal, but also extends superior to the field of view within the lower neck. The thyroid gland
measures up to 8 cm transverse dimension within the upper chest, and 7.7 cm AP dimension within the upper chest. Additionally, the enlarged thyroid has mass effect upon the lateral bernardo of the trachea, resulting in narrowing of the transverse
diameter of the trachea at the level of thoracic inlet, with measured transverse tracheal diameter of 7.3 mm anterior greatest narrowing. This enlarged thyroid also results in compression of the esophagus.
No grossly enlarged mediastinal or hilar lymph nodes. No evidence for enlarged axillary lymph nodes. There is no significant pleural effusion and no significant pericardial effusion.
Moderate to severe aortic valvular calcification. Coronary artery calcifications are noted. Please correlate with symptoms of and risk factors for coronary artery disease, with further workup as clinically appropriate.
Mild to moderate elevation of the left hemidiaphragm. Focal compressive atelectasis of the medial right upper lung, which is due to the enlarged fibroid within the right side of the mediastinum. There is focal compressive atelectasis within the
posteromedial right lung, which is due to right anterior spondylosis of the thoracic spine. Small linear densities within the inferior lingula, compatible with linear atelectasis and/or scarring. There are also small linear densities within the
anterior and inferior aspect of the left upper lobe of the lung, compatible with linear atelectasis and/or scarring. No significant bronchiectasis is evident.
Echo: 10/06/24- Overall LVEF is approximately 60% with no RWMA. Moderate concentric left ventricular hypertrophy. Stage II Diastolic dysfunction. Mildly dilated left atrium. Small patent foramen ovale present with a lwey-he-bmqje shunt. Mildly
dilated right atrium. Trace tricuspid regurgitation. Trace pulmonic insufficiency. Mild mitral regurgitation. Severe aortic stenosis. Trace aortic insufficiency. JUNIE calculates to 1.2 cm2 by continuity equation. Mid ascending aorta is mildly
dilated measuring 3.7 cm at the level of the RPA. Mild sessile atheroma seen in the descending aorta and distal arch.
[facility] 08/07/24- CONCLUSIONS
1. 73% focal calcified plaque in the mid LAD at the level of the takeoff of the diagonal branch.
2. Mid left circumflex, just proximal to OM 3, has a smooth tubular 60% stenosis.
3. Right coronary artery has a high anterior takeoff with a 70 to 80% stenosis in the mid RCA.
PFT's:
Reports and relevant images were personally reviewed.
-----
Critical care time 50 mins -- this includes review of history, physical exam, medications, hemodynamic/ventilator parameters, laboratory data, imaging and discussion with house staff, pharmacy, respiratory therapy, rail car painter/sandblaster, and nursing.
[2024-10-06 14:57] LABS: Glucose - Point of Care 100 mg/dl (70-99)
[2024-10-06 15:01] LABS: B.E. -0.3 mmol/L; HCO3 25.4 mmol/L (21-28); O2 Saturation % 99.4 % (94-98); PCO2 45 mmHg (35-48); PO2 124 mmHg (83-108); pH 7.36 (7.35-7.45)
--- NOTE | 2024-10-06 15:15 | PTCARENOTE ---
CPAP trial initiated at 1415. Pt tolerated well. Extubated to 6L at 1510. Pulse oximetry 100%. Pt achieving 1500 with IS. Pt able to state name and , moves all extremities appropriately.
[2024-10-06] MEDS: DILAUDID 0.5 MG IV (15:24)
[2024-10-06 15:26] LABS: B.E. - POC 1.2 mmol/L; Glucose - POC 116 mg/dl (70-99); HCO3 - POC 29 mmol/L (21-28); Hematocrit - POC 32 % PCV (42-52); Hemodilution- POC Yes; Ionized Calcium - POC 1.34 mmol/L (1.15-1.33); O2 Saturation %Calculated-POC 99.8 % (94-98); PCO2 - POC 65 mmHg (35-48); PO2 - POC 249 mmHg (83-108); POC Comment POST; Potassium - POC 4.1 mmol/L (3.5-5.1); Sodium - POC 144 mmol/L (136-145); pH - POC 7.26 (7.35-7.45)
[2024-10-06] MEDS: LACTATED RINGERS 250 ML IV (15:46)
--- NOTE | 2024-10-06 15:46 | RESPNOTE ---
Respiratory: patient extubated at 1510 without incident. No stridor, no wheeze.
--- NOTE | 2024-10-06 16:00 | PTCARENOTE ---
Urine clear yellow when initially arrive out of [facility]. Urine became pink tinged and progressively has become dark pink in color. CT, LINE HAUL TRUCK DRIVER, Sujatha made aware.
[2024-10-06 16:08] LABS: Glucose - Point of Care 108 mg/dl (70-99)
[2024-10-06] MEDS: PACERONE PO (16:26)
[2024-10-06] MEDS: TAPAZOLE PO (16:26)
[2024-10-06] MEDS: LOW STRENGTH ASPIRIN 81 MG PO (16:26)
[2024-10-06] MEDS: NEURONTIN 100 MG PO ×2 (16:26→21:01)
--- NOTE | 2024-10-06 17:04 | W.PN.CARDCBS ---
Addendum entered and electronically signed by Errol Lovell DO 10/06/24 17:35:
I saw and examined the patient.
The Casino Duty Manager's note was reviewed and I agree with the note.
Comment:
Plan:
Cont post op care
wean vent per protocol
post op EKG stable
discussed with nursing.
Original Note:
Today's Communication / Plan
-
-continue postop care
Impression / Plan
-
-Status post bioprosthetic AVR and CABG x 2 (BURNS to LAD with revision of BURNS to LAD bypass more distally, aorto to RSVG to RPDA) 10/06/2024
-History of severe aortic stenosis
-History of CAD
-Shortness of breath/fatigue
-PFO, small, on echo, stage II diastolic dysfunction
-Essential tremor
-Asthma
-Large thyroid goiter
-Anxiety
-Spinal stenosis
Previous cardiovascular studies:
Echo 05/07/2024: Normal LV size, wall thickness, and systolic function, EF 55 to 60%, severe aortic stenosis (99/56/0 0.95 cm�)
Cardiac cath 08/07/2024: Left main: 40% plaque in the proximal to mid left main. LAD: 70 to 80% mid LAD at level of diagonal branch takeoff. Circumflex: Mid left circumflex just proximal to the OM 3 has smooth tubular 60% stenosis. RCA: High
anterior takeoff, challenging to engage. Mid RCA 70 to 80% stenosis, distal RCA 30 to 40% stenosis
JOJO IntraOp 10/06/2024: EF 60%, no RWMA, moderate cLVH, stage II diastolic dysfunction, small PFO with [id number] shunt, mild MR, severe
Plan:
-Status post CABG x 2 and bioprosthetic AVR 10/06/2024.
-Off inotropes
-Postop EKG: Sinus bradycardia, nonspecific ST abnormality
-telemetry: SB 50s
-Postop management per CT protocol
-start ASA/Plavix/statin/beta pam in am
Progress Note - Credit Administration Manager
Subjective
Date of Service: October 06, 2024
s/p CABG x 2 and bioprosthetic AVR
maintaining NSR
Objective
Labs:
10/06/24 12:40
Labs
Hgb 10.5 g/dL (13.0-18.0) L 10/06/24 12:40
Hct 31.0 % (39.0-52.0) L 10/06/24 12:40
Plt Count 179 10^3/uL (130-400) 10/06/24 12:40
PT 20.4 Sec (11.4-14.6) H 10/06/24 12:40
INR 1.72 10/06/24 12:40
APTT 34.7 Sec (23.4-35.0) 10/06/24 12:40
Sodium 140 mmol/L (135-145) 09/29/24 08:57
Potassium 4.9 mmol/L (3.5-5.1) 09/29/24 08:57
BUN 19 mg/dl (9-20) 10/06/24 12:40
Creatinine 0.8 mg/dL (0.7-1.3) 10/06/24 12:40
Glucose 118 mg/dl (70-99) H 10/06/24 12:40
Vital Signs and I&O:
Vital Signs
Temp Pulse Resp BP Pulse Ox
98.5 F 55 23 94/58 98
10/06/24 16:00 10/06/24 16:20 10/06/24 16:20 10/06/24 16:00 10/06/24 16:20
Vital Signs
Temp Pulse Resp BP Pulse Ox
98.5 F 55 23 94/58 98
10/06/24 16:00 10/06/24 16:20 10/06/24 16:20 10/06/24 16:00 10/06/24 16:20
Intake & Output
10/04/24 10/05/24 10/06/24 10/07/24
06:59 06:59 06:59 06:59
Intake Total 892.5 / 892.5
Output Total 470 / 470
Balance 422.5 / 422.5
[2024-10-06 17:19] LABS: Glucose - Point of Care 130 mg/dl (70-99)
[2024-10-06 17:31] LABS: Hematocrit 33.3 % (39.0-52.0); Hemoglobin 11.2 g/dL (13.0-18.0); Platelet Count 204 10^3/uL (130-400)
[2024-10-06] MEDS: OFIRMEV 100 IV (18:18)
[2024-10-06 18:48] LABS: Glucose - Point of Care 109 mg/dl (70-99)
[2024-10-06] MEDS: ANCEF 5 IV (19:21)
[2024-10-06] MEDS: LEVOPHED 250 IV (19:21)
--- NOTE | 2024-10-06 20:00 | PTCARENOTE ---
assumed care of pt from previous RN. pt A&Ox4, resting in bed s/p CABG/AVR. R IJ cordis w/ swan floated to 48cm. L radial a-line. all lines leveled, zeroed, flushed. temp epicardial v-wires plugged in to pacer box, pulse generator currently off. SB
on tele-monitor, HR 50s. CTx3 (mediastinal x2, L pleural) to -20cm wall suction, draining sanguineous drainage. 2 L NC, POX 98-99%. abd s/n, +BS. pt tolerating sips of water w/ PO meds at this time. caballero catheter draining pink-tinged urine. CT PA
aware. all surgical sites stable, CDI. PIV intact. see worklist for complete nursing assessment, interventions, VS, and I&Os.
[2024-10-06] MEDS: SENOKOT-S 1 TABLET PO (20:38)
[2024-10-06 20:48] LABS: Glucose - Point of Care 105 mg/dl (70-99)
[2024-10-06] MEDS: FLEXERIL 5 MG PO (21:02)
[2024-10-06] MEDS: LIPITOR 40 MG PO (21:02)
[2024-10-06 22:58] LABS: Glucose - Point of Care 87 mg/dl (70-99)
[2024-10-06] MEDS: TYLENOL 1000 MG PO (22:58)
[2024-10-07] VITALS (33 sets, daily range): BP systolic 75–132; BP diastolic 46–80; PULSE 59; O2SAT 94–96; BMI 28.6
--- NOTE | 2024-10-07 | PTCARENOTE ---
Addendum entered by Kiara Herndon RN 10/07/24 03:31:
urine has become michael colored.
Original Note:
assessment remains unchanged. VSS. CT drainage WNL.
[2024-10-07 01:10] LABS: Glucose - Point of Care 100 mg/dl (70-99)
[2024-10-07] MEDS: ANCEF 5 IV ×2 (02:54→11:57)
[2024-10-07 03:00] LABS: Glucose - Point of Care 101 mg/dl (70-99)
[2024-10-07 03:09] LABS: Hematocrit 31.4 % (39.0-52.0); Hemoglobin 10.5 g/dL (13.0-18.0); Mean Corp Hgb Conc. 33.4 g/dL (33.0-37.0); Mean Corpuscular Hgb 32.5 pg (27.0-31.0); Mean Corpuscular Volume 97.2 fL (80.0-94.0); Mean Platelet Volume 10.2 fL (7.4-10.4); Platelet Count 174 10^3/uL (130-400); Red Blood Cell Count 3.23 10^6/uL (4.70-6.10); Red Cell Dist. Width 12.4 % (11.5-14.5); White Blood Cell Count 16.4 10^3/uL (4.8-10.8)
[2024-10-07 03:19] LABS: INR 1.32; PT 16.7 Sec (11.4-14.6)
[2024-10-07 03:50] LABS: Blood Urea Nitrogen 25 mg/dl (9-20); Calcium 8.8 mg/dl (8.4-10.2); Carbon Dioxide 24 mmol/L (22-30); Chloride 106 mmol/L (98-107); Estimated Creatinine Clearance 79 ml/min; Glucose 100 mg/dl (70-99); Potassium 4.8 mmol/L (3.5-5.1); Sodium 138 mmol/L (135-145); eGFR > 60.00
--- NOTE | 2024-10-07 04:00 | PTCARENOTE ---
assessment remains unchanged. VSS.
--- NOTE | 2024-10-07 04:02 | W.PN.CT ---
Today's Communication / Plan
-
Plan:
-No major issues overnight. Hemodynamically and neurologically intact
-Successfully extubated on 10/06/24 @ 1510
-Weaned of Levophed gtt last night. Remain on insulin gtt per protocol
-Rhythm is sinus graciela @ 58 bpm which is pt's baseline
-Last CI 2.33, U/O since OR 740 mL. Acute postop hematuria has resolved
-Monitor chest tube output: 2meds 200/320, L pleural 5/80 (may be able to d/c left pleural today if no significant drainage when OOB). CXR looks clear to my eyes, f/u official report
-Cont. current meds (ASA, Lipitor, Methimazole, Flomax-held last night d/t hypotension, will add Plavix. Held Amiodarone/Lopressor d/t hypotension and bradycardia)
-D/C'd swan and a-line this AM @ 0550
-Consider keeping caballero another day, given hx BPH/Prostatitis, inability to administer Flomax d/t hypotension
-Transfer to tele phase today once off insulin gtt
-Maintain cordis
-Maintain temporary PW (will pull in 1-2 days)
-Encourage use of IS
-Wean off of O2 as tolerated
-OOB into chair/Ambulate
Assessment / Plan
-
Assessment:
-S/P Surgical aortic valve replacement [27 mm bioprosthetic valve]/CABG x 2 (In situ BURNS to LAD -with revision of BURNS to LAD bypass more distally, Ao to RSVG to RPDA)/Endoscopic harvest of the
right lower extremity for vein/Left atrial appendage exclusion [35 mm clip], by Dr. Morrell, 10/06/24, pod#1
-Severe aortic valve stenosis, symptomatic
-Multivessel coronary disease involving bifurcation of the LAD and diagonal
-Sinus bradycardia
-Essential tremor
-Asthma
-Chronic marijuana use, since age 18
-Extremely large thyroid goiter
-Anxiety
-Arthritis
-BPH/Prostatitis (on Flomax @ home)
-Elevated PSA
-Spinal stenosis
-Acute postop blood loss/Anemia (stable without blood transfusion)
-Acute postop atelectasis
-Acute postop hypovolemia with subsequent hypervolemia
-Acute postop hematuria, resolved
-Probable acute pericarditis on EKG this AM, +rub on auscultation
Discussed patient care with: Cardiology, Nursing, Respiratory Therapy, Pharmacy and Care Team
Subjective
-
Date of Service: October 07, 2024
Pt c/o 2/6 incisional pain this AM, otherwise feels well
Objective Data
-
Lab Results
10/07/24 02:58
10/07/24 02:58
PT 16.7 Sec (11.4-14.6) H 10/07/24 02:58
INR 1.32 10/07/24 02:58
APTT 34.7 Sec (23.4-35.0) 10/06/24 12:40
Vital Signs
Vital Signs
Temp Pulse Resp BP Pulse Ox
99.1 F 58 14 111/65 98
10/07/24 03:00 10/07/24 03:30 10/07/24 03:30 10/07/24 03:00 10/07/24 03:[address] Intake/Output/Weight
10/06/24 10/06/24 10/07/24
06:59 18:59 06:59
Intake Total 1314.4 / 1741.0 426.6 / 1741.0
Output Total 615 / 1030 415 / 1030
Balance 699.4 / 711.0 11.6 / 711.0
SaO2: 98 (2L)
Physical Exam
-
General: Awake, Oriented and AOx3
Cardiovascular: Regular rate & rhythm, No Murmurs, Rub (probable acute pericarditis) and No Gallop
Respiratory: Decreased Breath Sounds (at bases, otherwise clear)
Sternum: Stable
Incision: Clean, Dry, Intact and Dressing Intact
Extremities: No Edema
Data Reviewed
-
Lab Results: Results Reviewed
Medications: Active Meds Reviewed
Chest X-Ray: Report Reviewed and Image Reviewed
ECG: Report Reviewed and Image Reviewed
[2024-10-07 04:09] LABS: Glucose - Point of Care 103 mg/dl (70-99)
[2024-10-07 05:15] LABS: Glucose - Point of Care 115 mg/dl (70-99)
[2024-10-07] MEDS: TYLENOL 1000 MG PO ×2 (05:31→14:04)
[2024-10-07] MEDS: FLEXERIL 5 MG PO ×2 (05:31→17:43)
[2024-10-07 06:01] LABS: Glucose - Point of Care 106 mg/dl (70-99)
[2024-10-07 07:06] LABS: Glucose - Point of Care 103 mg/dl (70-99)
--- NOTE | 2024-10-07 07:07 | W.PN.INTV ---
Today's Communication / Plan
Recommendations
Doing well, stable on RA
Pain control, minimal
Encouraged OOB/PT, IS
Transitioned off gtts
Transfer initiated to tele, we will sign off upon transfer
Assessment
-
Patient is a 69-year-old male with previous history of CAD, severe aortic stenosis with symptoms of shortness of breath and fatigue presenting for elective intervention. Outpatient workup demonstrating progression of valve disease with clinical
status deterioration. Underwent bypass surgery x 2 with surgical aortic valve replacement with bioprosthetic valve on 10/06/2024. Tolerated procedure well. Postoperatively transferred to CVICU for further management.
Severe status post AVR, MV CAD status post CABG x 2 10/06/24
Shortness of breath/fatigue
Postoperative anemia
Small PFO on ECHO, stage II DD
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
Prediabetes
Asthma
Elevated PSA
Thyroid goiter
Anxiety
Spinal stenosis
Arthritis
Plan
S/p Cab x 2, AVR POD #1
Off pressors per protocol
ECHO reviewed with normal function, but has diastolic dysfunction/moderate LVH, small PFO
PA catheter discontinued
Management of chest tubes per primary service
Pain control
RASS goal of 0 to -1
Intubated for procedure, extubated and doing well
ABG(s) reviewed
CXR without significant change
Maintain supplement oxygen as needed, currently on RA
Prior history of pulmonary disease: asthma/controlled on symbicort/albuterol
No prior PFTs for review
Can resume home inhalers/add nebulizers if needed
Aspiration precautions
Encouraged incentive spirometry, OOB/ambulation/early mobility
Advance diet as tolerated following extubation
GI prophylaxis if indicated for mechanical ventilation >48 hours
Monitor critical I/O's
Clay/chest tube output
Hb/platelets postoperatively stable
Trend CBC for now
Can transfuse if indicated for Hb <7, plt <50 in surgical patients
DVT prophylaxis including SCDs
Insulin gtt off
Transitioned to SQ/off as indicated per team
Thyroid goiter noted, observe airway
Diagnostic Data
Chest X-Ray: 10/06/24-Small loculated left pleural effusion. Bilateral atelectasis versus scarring.
CT Scan: CHEST/cardiac 08/22/24- The thyroid gland is significantly enlarged with extension into the upper chest posterior to the esophagus and slightly greater extension into the right side of the mediastinum when compared to the left. There is
associated calcifications. Findings are compatible with a significantly enlarged multinodular thyroid. The thyroid gland measures at least 13 cm craniocaudal, but also extends superior to the field of view within the lower neck. The thyroid gland
measures up to 8 cm transverse dimension within the upper chest, and 7.7 cm AP dimension within the upper chest. Additionally, the enlarged thyroid has mass effect upon the lateral bernardo of the trachea, resulting in narrowing of the transverse
diameter of the trachea at the level of thoracic inlet, with measured transverse tracheal diameter of 7.3 mm anterior greatest narrowing. This enlarged thyroid also results in compression of the esophagus.
No grossly enlarged mediastinal or hilar lymph nodes. No evidence for enlarged axillary lymph nodes. There is no significant pleural effusion and no significant pericardial effusion.
Moderate to severe aortic valvular calcification. Coronary artery calcifications are noted. Please correlate with symptoms of and risk factors for coronary artery disease, with further workup as clinically appropriate.
Mild to moderate elevation of the left hemidiaphragm. Focal compressive atelectasis of the medial right upper lung, which is due to the enlarged fibroid within the right side of the mediastinum. There is focal compressive atelectasis within the
posteromedial right lung, which is due to right anterior spondylosis of the thoracic spine. Small linear densities within the inferior lingula, compatible with linear atelectasis and/or scarring. There are also small linear densities within the
anterior and inferior aspect of the left upper lobe of the lung, compatible with linear atelectasis and/or scarring. No significant bronchiectasis is evident.
Echo: 10/06/24- Overall LVEF is approximately 60% with no RWMA. Moderate concentric left ventricular hypertrophy. Stage II Diastolic dysfunction. Mildly dilated left atrium. Small patent foramen ovale present with a ggsx-oo-bjuke shunt. Mildly
dilated right atrium. Trace tricuspid regurgitation. Trace pulmonic insufficiency. Mild mitral regurgitation. Severe aortic stenosis. Trace aortic insufficiency. JUNIE calculates to 1.2 cm2 by continuity equation. Mid ascending aorta is mildly
dilated measuring 3.7 cm at the level of the RPA. Mild sessile atheroma seen in the descending aorta and distal arch.
[facility] 08/07/24- CONCLUSIONS
1. 73% focal calcified plaque in the mid LAD at the level of the takeoff of the diagonal branch.
2. Mid left circumflex, just proximal to OM 3, has a smooth tubular 60% stenosis.
3. Right coronary artery has a high anterior takeoff with a 70 to 80% stenosis in the mid RCA.
PFT's:
Reports and relevant images were personally reviewed.
-----
Critical care time 34 mins -- this includes review of history, physical exam, medications, hemodynamic/ventilator parameters, laboratory data, imaging and discussion with house staff, pharmacy, respiratory therapy, compounding pharmacy technician, and nursing.
Subjective Dataa
Subjective Data
Date of Service:
Date of Service: October 07, 2024
Chief Complaint: Colliery Clerk Follow Up
Subjective:
Doing well, off O2
No complaints
Tolerating diet, minimal pain
Objective Data
Data Reviewed
Vital Signs / I&O / Oxygen:
Vital Signs
Temp Pulse Resp BP Pulse Ox
99.4 F 58 19 102/75 92
10/07/24 05:00 10/07/24 06:45 10/07/24 06:02 10/07/24 06:38 10/07/24 06:45
Intake and Output
10/06/24 10/07/24 10/08/24
06:59 06:59 06:59
Intake Total 1833.9 / 1833.9
Output Total 1185 / 1185
Balance 648.9 / 648.9
SaO2 [CPAP] 99
SaO2 [SIMV] 100
SaO2 92
Nasal Cannula flow liters per 2
minute
Physical Exam
General: Comfortable and Other (NAD)
HEENT: Normocephalic, Anicteric and Moist Mucous Membranes
Cardiovascular: S1-S2 and Regular Rhythm
Respiratory: Clear, Non-Labored Respirations and Chest Tube
GI: Soft, Non Distended and Non Tender
Neurology: Awake, Alert, Oriented and No Motor Deficits
Skin: Warm, Dry and Good Color
Labs/Micro/Reports
Lab Data
10/07/24 02:58
10/07/24 02:58
Laboratory Results
10/06/24 10/06/24 10/07/24
12:40 14:54 02:58
PT 20.4 H 16.7 H
INR 1.72 1.32
APTT 34.7
pH 7.37 7.36
pCO2 46 45
pO2 137 H 124 H
HCO3 26.6 25.4
O2 Delivery Level
[2024-10-07] MEDS: SYMBICORT 160/4.5 MCG INHALER 2 PUFF INH (07:59)
--- NOTE | 2024-10-07 07:59 | W.PN.ANS.POP ---
Anesthesia Post Operative
- Anesthesia Post Op Note
Vital Signs Stable-See Nursing Note: Yes
Airway Patent: Yes
Adequate Pain Control: Yes
Change in Mental Status: No
Current Postoperative Nausea & Vomiting: No
Anesthesia Complications: No
General Anesthetic Recall: No
Unplanned Admission: No
Post Op Hydration Adequate: Yes
[2024-10-07] MEDS: MAGNESIUM OXIDE 500 MG PO ×2 (08:26→19:32)
[2024-10-07] MEDS: PROTONIX 40 MG PO (08:27)
[2024-10-07] MEDS: PLAVIX 75 MG PO (08:27)
[2024-10-07] MEDS: NEURONTIN 100 MG PO ×2 (08:27→16:04)
[2024-10-07] MEDS: LOW STRENGTH ASPIRIN 81 MG PO (08:27)
[2024-10-07] MEDS: SENOKOT-S 1 TABLET PO ×2 (08:28→19:32)
[2024-10-07] MEDS: TAPAZOLE PO (08:32)
[2024-10-07] MEDS: LIDOCAINE 4% PATCH TOPICAL (08:32)
--- NOTE | 2024-10-07 08:41 | PTCARENOTE ---
Patient received from night manager resting oob in chair, AAO x 3, states pain controlled at this time. SB via cm, SaO2 @ 99% on 2lnc. RIJ Cordis w/kvo infusing. Epicardial V-wire to pulse generator, off. Mediastinal chest tubes x 2 (Y-connected to
one pleurevac), L pleural chest tube to seperate collection chamber, no air leaks or crepitus noted. All procedural sites stable. Clay catheter to gravity. Insulin infusing per glycemic protocol. Patient updated to plan of care for the day, in
agreement. See work list for full assessment and interventions performed.
[2024-10-07 09:03] LABS: Glucose - Point of Care 105 mg/dl (70-99)
[2024-10-07] MEDS: PACERONE 200 MG PO ×2 (09:41→16:05)
[2024-10-07] MEDS: LR 500 IV (09:41)
[2024-10-07] MEDS: BACTROBAN 2% OINTMENT 1 APPLIC NASAL ×2 (10:03→19:32)
[2024-10-07 10:56] LABS: Glucose - Point of Care 106 mg/dl (70-99)
--- NOTE | 2024-10-07 11:00 | PTCARENOTE ---
Left pleural chest tube d/c'd as ordered, pacing wire insulated to chest wall. Patient tolerated well, SaO2 97% on RA.
[2024-10-07] MEDS: NSS 500 IV (11:58)
--- NOTE | 2024-10-07 12:10 | PTCARENOTE ---
VS obtained, assessment stable. Patient resting comfortably, states pain controlled. at bedside.
[2024-10-07 13:04] LABS: Glucose - Point of Care 107 mg/dl (70-99)
[2024-10-07] MEDS: FERRLECIT 110 MG IV (14:05)
[2024-10-07] MEDS: FLOMAX 0.4 MG PO (14:05)
--- NOTE | 2024-10-07 14:07 | W.PN.CARDCBS ---
Addendum entered and electronically signed by Yeison Dominique MD 10/07/24 15:47:
patient seen and examined
agree with LINDSEY Judge's notes and assessment
agree with LINDSEY Judge's plan
exam:
echo during exam
sternum cdi
cor regular no m
lungs ctab
abd soft nt nd
ext no edema
aao x3
non focal neurologically
Status post bioprosthetic AVR and CABG x 2 (BURNS to LAD with revision of BURNS to LAD bypass more distally, aorto to RSVG to RPDA) 10/06/2024
-History of severe aortic stenosis
-History of CAD
-Shortness of breath/fatigue
-PFO, small, on echo, stage II diastolic dysfunction
-Essential tremor
-Asthma
-Large thyroid goiter
-Anxiety
-Spinal stenosis
Previous cardiovascular studies:
Echo 05/07/2024: Normal LV size, wall thickness, and systolic function, EF 55 to 60%, severe aortic stenosis (99/56/0 0.95 cm�)
Cardiac cath 08/07/2024: Left main: 40% plaque in the proximal to mid left main. LAD: 70 to 80% mid LAD at level of diagonal branch takeoff. Circumflex: Mid left circumflex just proximal to the OM 3 has smooth tubular 60% stenosis. RCA: High
anterior takeoff, challenging to engage. Mid RCA 70 to 80% stenosis, distal RCA 30 to 40% stenosis
JOJO IntraOp 10/06/2024: EF 60%, no RWMA, moderate cLVH, stage II diastolic dysfunction, small PFO with [id number] shunt, mild MR, severe
Plan:
-Status post CABG x 2 and bioprosthetic AVR 10/06/2024.
-looks well
-post op EKG/tele sinus bradycardia which patient reports is chronic. also with some anterior ST elevation and during procedure distal LAD anastomosis was revised. will check echo to reassess
-amio/BB held due to hypotension/bradycardia this AM. give as able
-continue post op care
-continue asa, plavix. follow hematuria
-continue statin
-d/w nursing, CT surgical team
Original Note:
Today's Communication / Plan
-
continue post op care
check echo
follow EKGs
follow BP/HR
Impression / Plan
-
-Status post bioprosthetic AVR and CABG x 2 (BURNS to LAD with revision of BURNS to LAD bypass more distally, aorto to RSVG to RPDA) 10/06/2024
-History of severe aortic stenosis
-History of CAD
-Shortness of breath/fatigue
-PFO, small, on echo, stage II diastolic dysfunction
-Essential tremor
-Asthma
-Large thyroid goiter
-Anxiety
-Spinal stenosis
Previous cardiovascular studies:
Echo 05/07/2024: Normal LV size, wall thickness, and systolic function, EF 55 to 60%, severe aortic stenosis (99/56/0 0.95 cm�)
Cardiac cath 08/07/2024: Left main: 40% plaque in the proximal to mid left main. LAD: 70 to 80% mid LAD at level of diagonal branch takeoff. Circumflex: Mid left circumflex just proximal to the OM 3 has smooth tubular 60% stenosis. RCA: High
anterior takeoff, challenging to engage. Mid RCA 70 to 80% stenosis, distal RCA 30 to 40% stenosis
JOJO IntraOp 10/06/2024: EF 60%, no RWMA, moderate cLVH, stage II diastolic dysfunction, small PFO with [id number] shunt, mild MR, severe
Plan:
-Status post CABG x 2 and bioprosthetic AVR 10/06/2024.
-looks well
-post op EKG/tele sinus bradycardia which patient reports is chronic. also with some anterior ST elevation and during procedure distal LAD anastomosis was revised. will check echo to reassess
-amio/BB held due to hypotension/bradycardia this AM. give as able
-continue post op care
-continue asa, plavix. follow hematuria
-continue statin
-d/w nursing, CT surgical team
Progress Note - Food Service
Subjective
Date of Service: October 07, 2024
feeling well.
Objective
Labs:
10/07/24 02:58
10/07/24 02:58
Labs
Hgb 10.5 g/dL (13.0-18.0) L 10/07/24 02:58
Hct 31.4 % (39.0-52.0) L 10/07/24 02:58
Plt Count 174 10^3/uL (130-400) 10/07/24 02:58
PT 16.7 Sec (11.4-14.6) H 10/07/24 02:58
INR 1.32 10/07/24 02:58
APTT 34.7 Sec (23.4-35.0) 10/06/24 12:40
Sodium 138 mmol/L (135-145) 10/07/24 02:58
Potassium 4.8 mmol/L (3.5-5.1) 10/07/24 02:58
BUN 25 mg/dl (9-20) H 10/07/24 02:58
Creatinine 0.9 mg/dL (0.7-1.3) 10/07/24 02:58
Glucose 100 mg/dl (70-99) H 10/07/24 02:58
Vital Signs and I&O:
Vital Signs
Temp Pulse Resp BP Pulse Ox
98.5 F 65 14 126/58 95
10/07/24 12:00 10/07/24 13:47 10/07/24 12:00 10/07/24 12:00 10/07/24 12:15
Vital Signs
Temp Pulse Resp BP Pulse Ox
98.5 F 65 14 126/58 95
10/07/24 12:00 10/07/24 13:47 10/07/24 12:00 10/07/24 12:00 10/07/24 12:15
Intake & Output
10/05/24 10/06/24 10/07/24 10/08/24
07:59 07:59 07:59 07:59
Intake Total 1844.9 / 2105.9 965 / 965
Output Total 1215 / 1215 235 / 235
Balance 629.9 / 890.9 730 / 730
Physical Exam
Physical Exam
GEN: No distress, awake, alert, oriented x3. sitting in chair
HEENT: supple, anicteric, mmm, eomi
LUNGS: CTA B/L, no wheezes
CV: Reg and graciela, S1/S2, no murmur
ABD: soft, NT/ND
EXT: No cyanosis, clubbing, edema
NEURO: Gross non-focal
SKIN: Warm, pink, dry. No rash. Sternotomy incision in place. CTs in place
: caballero
--- NOTE | 2024-10-07 14:43 | CM ---
Reviewed chart. Met with Mr. Brandon to review discharge plans. He states he is feeling well. We reviewed a home visit by the Transitional Care Nurse. He is agreeable to a home visit. He states prior to admission he resides with his spouse in a
two story home with one step to enter. He states he has a full flight of steps to get to bedroom/full bathroom. He states he has a powder room on the first floor. He states prior to admission he was independent with ambulation and adls. He states
he does not have any DME in the home. He states he has a prescription plan. He states his spouse will be home to assist in his care if needed. Medical work-up in progress. The discharge plan is to return home with his spouse and a home visit by
the Transitional l Care Nurse when medically stable.
[2024-10-07] MEDS: TORADOL 15 MG IV (19:33)
--- NOTE | 2024-10-07 19:46 | PTCARENOTE ---
Received pt from [facility]. Walking rounds completed. Pt assessment performed in bed. Pt is AAOx4. No neuro deficits noted. NSR to SB on monitor. HR: 61, B/P 115/59. V-Wires insulated. Pulses palpable. Bi-lateral UE +1 edema, Bi-lateral LE trace
edema. Lungs clear, diminished in bases. Mediastinal CTx2 intact, draining serosanguineous fluid, WNL. POX 94% RA. I/S 1500. Encouraged pt to use 10X while awake. Pt voiding michael fluid, WNL. NBS, abdomen soft, non-tender to touch. Sternal incision
approximated with surgical glue present. R groin puncture, dry, intact. surrounding skin ecchymotic to R knee. R knee incision approximated, surgical glue present. R IJ cordis intact, not redness or edema noted. 18G R hand intact, no redness or
edema noted. Discussed plan of care with pt for evening. Pt agrees with plan. Will continue to monitor pt needs.
[2024-10-07] MEDS: LIPITOR 40 MG PO (22:19)
[2024-10-07] MEDS: TYLENOL PO (22:34)
[2024-10-07] MEDS: PACERONE PO (22:34)
[2024-10-07] MEDS: NEURONTIN PO (22:34)
--- NOTE | 2024-10-07 22:38 | PTCARENOTE ---
NSR to SB on monitor. Vital signs obtained. Pt B/P: 75/46. CTPA Ed aware. Holding 2200 medication (See MAR). 250 NSS bolus ordered and hung. Pt resting in bed. Will continue to monitor pt needs.
[2024-10-07] MEDS: NSS 250 IV (23:07)
--- NOTE | 2024-10-07 23:33 | PTCARENOTE ---
VSS. NSR on monitor. HR: 62, B/P: 95/52. NSS bolus completed. Pt resting in bed. Will continue to monitor pt needs.
[2024-10-08] VITALS (40 sets, daily range): BP systolic 73–135; BP diastolic 44–82; PULSE 64; O2SAT 96–98; BMI 29.8
[2024-10-08] MEDS: TYLENOL 650 MG PO (01:50)
--- NOTE | 2024-10-08 04:20 | W.PN.CT ---
Today's Communication / Plan
-
Plan:
-No major issues overnight. Hemodynamically and neurologically intact
-Rhythm is sinus graciela @ 59 bpm which is pt's baseline. BB on hold d/t postop bradycardia/hypotension. Amiodarone decreased to 200 mg BID with parameters
-BP soft last night and required 250 mL NS bolus x 1
-Will replete ca++ to help augment BP
-Consider D/C of remaining chest tubes: 2meds 140/230. CXR looks clear to my eyes with mild left basilar atelectasis/bowel distention, f/u official report
-D/C temporary PW (pull)
-EKG with mild anterior ST-elevation, noted to have +rub, likely acute pericarditis, received Toradol x 3. TTE obtained yesterday 10/07 was unremarkable. Careful with further Toradol given rising Cr.
-Cont. current meds (ASA, Plavix, Lipitor, Methimazole, Flomax-will consider holding if BP remains soft. Amiodarone/Lopressor held last night d/t hypotension and bradycardia)
-Maintain cordis another day
-Encourage use of IS
-Wean off of O2 as tolerated
-OOB into chair/Ambulate
-Home in 1-2 days
Assessment / Plan
-
Assessment:
-S/P Surgical aortic valve replacement [27 mm bioprosthetic valve]/CABG x 2 (In situ BURNS to LAD -with revision of BURNS to LAD bypass more distally, Ao to RSVG to RPDA)/Endoscopic harvest of the
right lower extremity for vein/Left atrial appendage exclusion [35 mm clip], by Dr. Morrell, 10/06/24, pod#2
-Severe aortic valve stenosis, symptomatic
-Multivessel coronary disease involving bifurcation of the LAD and diagonal
-Sinus bradycardia
-Essential tremor
-Asthma
-Chronic marijuana use, since age 18
-Extremely large thyroid goiter
-Anxiety
-Arthritis
-BPH/Prostatitis (on Flomax @ home)
-Elevated PSA
-Spinal stenosis
-Acute postop blood loss/Anemia (stable without blood transfusion)
-Acute postop atelectasis
-Acute postop hypovolemia with subsequent hypervolemia
-Acute postop hematuria, resolved
-Probable acute pericarditis on EKG this AM, +rub on auscultation
-Acute postop hyponatremia, 134
Discussed patient care with: Cardiology, Nursing, Respiratory Therapy, Pharmacy and Care Team
Subjective
Procedure
S/P Surgical aortic valve replacement [27 mm bioprosthetic valve]/CABG x 2 (In situ BURNS to LAD -with revision of BURNS to LAD bypass more distally, Ao to RSVG to RPDA)/Endoscopic harvest of the
right lower extremity for vein/Left atrial appendage exclusion [35 mm clip], by Dr. Morrell, 10/06/24, pod
-
Date of Service: October 08, 2024
Pt c/o mild incisional pain, otherwise feels well
Objective Data
-
PT 16.7 Sec (11.4-14.6) H 10/07/24 02:58
INR 1.32 10/07/24 02:58
APTT 34.7 Sec (23.4-35.0) 10/06/24 12:40
Vital Signs
Vital Signs
Temp Pulse Resp BP Pulse Ox
99.1 F 60 16 97/47 97
10/07/24 23:09 10/08/24 00:45 10/07/24 23:09 10/08/24 00:45 10/07/24 23:09
CT Intake/Output/Weight
10/07/24 10/07/24 10/08/24
06:59 18:59 06:59
Intake Total 519.5 / 1844.9 1256 / 1556 300 / 1556
Output Total 570 / 1215 315 / 500 185 / 500
Balance -50.5 / 629.9 941 / 1056 115 / 1056
SaO2: 97 (2L)
Physical Exam
-
General: Awake, Oriented and AOx3
Cardiovascular: Regular rate & rhythm, No Murmurs, Rub (+rub likely d/t acute pericarditis) and No Gallop
Respiratory: Decreased Breath Sounds (at bases, otherwise clear)
Sternum: Stable
Incision: Clean, Dry, Intact and Dressing Intact
Extremities: No Edema
Data Reviewed
-
Lab Results: Results Reviewed
Medications: Active Meds Reviewed
Chest X-Ray: Report Reviewed and Image Reviewed
ECG: Report Reviewed and Image Reviewed
--- NOTE | 2024-10-08 04:35 | PTCARENOTE ---
VSS. NSR to SB on monitor. HR:61, B/P: 93/55. Morning labs obtained and sent. CHG bath provided. EKG obtained. Pt resting in bed. Will continue to monitor pt needs.
[2024-10-08 04:41] LABS: Ionized Calcium 1.16 mMOL/L (1.15-1.33)
[2024-10-08 05:02] LABS: Blood Urea Nitrogen 40 mg/dl (9-20); Calcium 7.7 mg/dl (8.4-10.2); Carbon Dioxide 28 mmol/L (22-30); Chloride 102 mmol/L (98-107); Estimated Creatinine Clearance 64 ml/min; Glucose 127 mg/dl (70-99); Potassium 4.3 mmol/L (3.5-5.1); Sodium 134 mmol/L (135-145); eGFR > 60.00
[2024-10-08 05:17] LABS: Hematocrit 27.1 % (39.0-52.0); Mean Corp Hgb Conc. 33.2 g/dL (33.0-37.0); Mean Corpuscular Hgb 32.4 pg (27.0-31.0); Mean Corpuscular Volume 97.5 fL (80.0-94.0); Mean Platelet Volume 10.5 fL (7.4-10.4); Platelet Count 130 10^3/uL (130-400); Red Blood Cell Count 2.78 10^6/uL (4.70-6.10); Red Cell Dist. Width 12.2 % (11.5-14.5); White Blood Cell Count 13.4 10^3/uL (4.8-10.8)
[2024-10-08] MEDS: TYLENOL 1000 MG PO ×3 (05:46→22:01)
[2024-10-08] MEDS: CALCIUM GLUCONATE 290 MG IV (05:54)
[2024-10-08] MEDS: MYLICON 80 MG PO (06:04)
--- NOTE | 2024-10-08 06:16 | PTCARENOTE ---
NSR to SB on monitor. Attempted to sit pt on side of the bed. Pt B/P: 78/47. Pt became hypotensive and symptomatic. CTPA notified. Per CTPA Ed keep pt in bed until Calcium gluconate completes (See MAR). Will continue to monitor pt needs.
[2024-10-08] MEDS: SYMBICORT 160/4.5 MCG INHALER 2 PUFF INH (07:16)
--- NOTE | 2024-10-08 07:30 | PTCARENOTE ---
Assumed care of patient from manufacturing shift supervisor RN. AAO x 3 SB/SR on monitor. Epicardial wire insulated. 2 L NC 98 %, IS to 1250. Chest tubes x 2 to - 20 cm suction. No air leak or crepitus noted. Abdomen soft and non tender, passing flatus. Voiding
on own. Surgical sites c,d,i. Pulses palpable. Plan for day discussed.
[2024-10-08] MEDS: BACTROBAN 2% OINTMENT 1 APPLIC NASAL ×2 (09:15→20:10)
[2024-10-08] MEDS: LIDOCAINE 4% PATCH 1 PATCH TOPICAL (09:15)
[2024-10-08] MEDS: PACERONE 200 MG PO ×2 (09:16→20:18)
[2024-10-08] MEDS: PROTONIX 40 MG PO (09:16)
[2024-10-08] MEDS: SENOKOT-S 1 TABLET PO ×2 (09:16→20:11)
[2024-10-08] MEDS: PLAVIX 75 MG PO (09:16)
[2024-10-08] MEDS: NEURONTIN 100 MG PO ×3 (09:16→22:01)
[2024-10-08] MEDS: TAPAZOLE 2.5 MG PO (09:16)
[2024-10-08] MEDS: MAGNESIUM OXIDE 500 MG PO ×2 (09:17→20:10)
[2024-10-08] MEDS: LOW STRENGTH ASPIRIN 81 MG PO (09:17)
--- NOTE | 2024-10-08 09:41 | PTCARENOTE ---
Pt assisted oob to chair. Tolerated well with 2 assist. BP orthostatic laying 103 systolic, sitting 95 systolic, and standing 73. Asymptomatic and able to transfer to chair. CT CAPTION WRITER notified.
[2024-10-08] MEDS: ProAmatine 5 MG PO ×3 (09:55→17:09)
--- NOTE | 2024-10-08 11:53 | PTCARENOTE ---
Mediastinal chest tubes removed as per order. Pt tolerated w/o issue. Tolerated sitting in the chair x 1 1/5 hours. VSS First dose of midodrine administered. Assessment otherwise unchanged from prior.
[2024-10-08] MEDS: FERRLECIT 110 MG IV (13:40)
[2024-10-08] MEDS: NSS IV (13:44)
--- NOTE | 2024-10-08 15:51 | CM ---
Reviewed chart. Met with and Mrs. Brandon to review discharge plans. He states he feels well and maybe able to go home soon. We reviewed a home visit by the Transitional Care Nurse. He is agreeable to a home visit. Prior to admission he
resides with his spouse in a two story home with two steps to enter. He has a full flight of steps to get to bedroom/full bathroom. He has a powder room on the first floor. Prior to admission he was independent with ambulation and adls. He does
not have any DME in the home. He has a prescription plan. His spouse will be home to assist in his care if needed. Medical work-up in progress. The discharge plan is to return home with his spouse and a home visit by the Transitional Care Nurse
when medically stable.
--- NOTE | 2024-10-08 16:47 | W.PN.CARDCBS ---
Today's Communication / Plan
-
Usual care as you are
Appreciate excellent surgical care
Impression / Plan
-
-Status post bioprosthetic AVR and CABG x 2 (BURNS to LAD with revision of BURNS to LAD bypass more distally, aorto to RSVG to RPDA) 10/06/2024
-History of severe aortic stenosis
-History of CAD
-Shortness of breath/fatigue
-PFO, small, on echo, stage II diastolic dysfunction
-Essential tremor
-Asthma
-Large thyroid goiter
-Anxiety
-Spinal stenosis
Previous cardiovascular studies:
Echo 05/07/2024: Normal LV size, wall thickness, and systolic function, EF 55 to 60%, severe aortic stenosis (99/56/0 0.95 cm�)
Cardiac cath 08/07/2024: Left main: 40% plaque in the proximal to mid left main. LAD: 70 to 80% mid LAD at level of diagonal branch takeoff. Circumflex: Mid left circumflex just proximal to the OM 3 has smooth tubular 60% stenosis. RCA: High
anterior takeoff, challenging to engage. Mid RCA 70 to 80% stenosis, distal RCA 30 to 40% stenosis
JOJO IntraOp 10/06/2024: EF 60%, no RWMA, moderate cLVH, stage II diastolic dysfunction, small PFO with cfkn-jk-[id number] shunt, mild MR, severe
Plan:
-Status post CABG x 2 and bioprosthetic AVR 10/06/2024.
-looks well
-post op EKG/tele sinus bradycardia which patient reports is chronic. also with some anterior ST elevation and during procedure distal LAD anastomosis was revised. Echo does not demonstrate any significant wall motion abnormality with normal
ejection fraction
-amio/BB held at times due to hypotension and bradycardia. give as able. No indication for permanent pacing
-continue post op care
-continue asa, plavix. follow hematuria
-continue statin
-d/w nursing, CT surgical team
Progress Note - Right Of Way Appraiser
Subjective
Date of Service: October 08, 2024
Feels well
Objective
Labs:
10/08/24 04:17
10/08/24 04:17
Labs
Hgb 9.0 g/dL (13.0-18.0) L 10/08/24 04:17
Hct 27.1 % (39.0-52.0) L 10/08/24 04:17
Plt Count 130 10^3/uL (130-400) D 10/08/24 04:17
PT 16.7 Sec (11.4-14.6) H 10/07/24 02:58
INR 1.32 10/07/24 02:58
APTT 34.7 Sec (23.4-35.0) 10/06/24 12:40
Sodium 134 mmol/L (135-145) L 10/08/24 04:17
Potassium 4.3 mmol/L (3.5-5.1) 10/08/24 04:17
BUN 40 mg/dl (9-20) H 10/08/24 04:17
Creatinine 1.1 mg/dL (0.7-1.3) 10/08/24 04:17
Glucose 127 mg/dl (70-99) H 10/08/24 04:17
Vital Signs and I&O:
Vital Signs
Temp Pulse Resp BP Pulse Ox
98.9 F 58 16 73/52 96
10/08/24 11:49 10/08/24 11:49 10/08/24 11:49 10/08/24 09:23 10/08/24 11:49
Vital Signs
Temp Pulse Resp BP Pulse Ox
98.9 F 58 16 73/52 96
10/08/24 11:49 10/08/24 11:49 10/08/24 11:49 10/08/24 09:23 10/08/24 11:49
Intake & Output
11/25/24 10/07/24 10/08/24 10/09/24
06:59 06:59 06:59 06:59
Intake Total 1833.9 / 1844.9 1616 / 1616 740 / 740
Output Total 1185 / 1215 780 / 780 400 / 400
Balance 648.9 / 629.9 836 / 836 340 / 340
Physical Exam
Physical Exam
�
����Physical Exam
�
���������������������General:��no apparent distress, not acutely ill
�
���������������������������Neck:��supple. no meningeal signs. normal psoterior pharynx
������������������������
���������������������������Heart:��s1/s2 regular rate and rhythm, no murmur. equal radial pulses.
�
��������������������������Lungs: ��no acute respiratory distress. clear bilaterally
�
����������������������Abdomen:�normal bowel sounds. not tender. no CVAT
�
��������������������������Neuro:��alert and oriented. no focal neurological deficits
�
������������������������������Skin: ��no rash
�
�����������������������Psychiatric:�well kept. interactive and cooperative
�
�����������������������Extremities:��no edema. no calf tenderness. negative homans. good distal pulses
�
�
�
��
�
--- NOTE | 2024-10-08 20:00 | PTCARENOTE ---
Received pt from [facility]. Walking rounds completed. Pt assessment performed in bed. Pt is AAOx4. No neuro deficits noted. NSR on monitor. HR: 70, B/P 120/60. V-Wires insulated. Pulses palpable. Bi-lateral UE +1 edema, Bi-lateral LE trace edema.
Lungs clear, diminished in bases. POX 97% RA. I/S 1500. Encouraged pt to use 10X while awake. Pt voiding michael fluid, WNL. NBS, abdomen soft, non-tender to touch. Sternal incision approximated with surgical glue present. R groin puncture, dry,
intact. surrounding skin ecchymotic to R knee. R knee incision approximated, surgical glue present. R IJ cordis intact, not redness or edema noted. 18G R hand intact, no redness or edema noted. Discussed plan of care with pt for evening. Pt agrees
with plan. Will continue to monitor pt needs.
[2024-10-08] MEDS: LIPITOR 40 MG PO (22:01)
--- NOTE | 2024-10-08 23:58 | PTCARENOTE ---
VSS. PT in NSR on monitor. PM care provided. Pt is resting in bed. Will continue to monitor pt needs.
[2024-10-09] VITALS (8 sets, daily range): BP systolic 107–141; BP diastolic 55–88; BMI 29.0
[2024-10-09 04:12] LABS: Hematocrit 26.8 % (39.0-52.0); Hemoglobin 9.1 g/dL (13.0-18.0); Mean Corpuscular Hgb 32.9 pg (27.0-31.0); Mean Corpuscular Volume 96.8 fL (80.0-94.0); Mean Platelet Volume 10.6 fL (7.4-10.4); Platelet Count 125 10^3/uL (130-400); Red Blood Cell Count 2.77 10^6/uL (4.70-6.10); Red Cell Dist. Width 12.2 % (11.5-14.5)
--- NOTE | 2024-10-09 04:20 | PTCARENOTE ---
VSS. NSR on monitor. Morning labs obtained and sent. AM care provided. Pt resting in bed. Will continue to monitor pt needs.
[2024-10-09 05:22] LABS: Blood Urea Nitrogen 25 mg/dl (9-20); Calcium 7.8 mg/dl (8.4-10.2); Carbon Dioxide 29 mmol/L (22-30); Chloride 104 mmol/L (98-107); Estimated Creatinine Clearance 88 ml/min; Glucose 117 mg/dl (70-99); Magnesium 1.8 mg/dl (1.6-2.3); Potassium 4.5 mmol/L (3.5-5.1); Sodium 136 mmol/L (135-145); eGFR > 60.00
--- NOTE | 2024-10-09 05:53 | W.PN.CT ---
Today's Communication / Plan
-
-pod #3
-brief episode of bradycardia at approx 6am - hr 38-low 40s with 1 junctional escape beat. BB has been on hold since OR. Held Amio
-maintain pw (VVI 40 backup)
-repleted Ca
-Tm 100 - monitor. Doing well with IS [id number]
-weaned off O2 - pOx 94% on RA.
-current meds (ASA, Plavix, Lipitor, Midodrine 5 tid, Tapazole, Protonix). BB and Amio held d/t graciela, hypotension
-encourage OOB
Assessment / Plan
-
Assessment:
-S/P Surgical aortic valve replacement [27 mm bioprosthetic valve]/CABG x 2 (In situ BURNS to LAD -with revision of BURNS to LAD bypass more distally, Ao to RSVG to RPDA)/Endoscopic harvest of the right lower extremity for vein/Left atrial appendage
exclusion [35 mm clip], by Dr. Morrell, 10/06/24, pod#3
-Severe aortic valve stenosis, symptomatic
-Multivessel coronary disease involving bifurcation of the LAD and diagonal
-Sinus bradycardia
-Essential tremor
-Asthma
-Chronic marijuana use, since age 18
-Extremely large thyroid goiter
-Anxiety
-Arthritis
-BPH/Prostatitis (on Flomax @ home)
-Elevated PSA
-Spinal stenosis
-Acute postop blood loss/Anemia (stable without blood transfusion)
-Acute postop atelectasis
-Acute postop hypovolemia with subsequent hypervolemia
-Acute postop hematuria, resolved
-Probable acute pericarditis on EKG this AM, +rub on auscultation
-Acute postop hyponatremia, 134
-Acute postop hypotension/orthostasis - started on Midodrine tid. BB has been on hold postop
-Acute postop brief bradycardia high 30s-low 40s on 10/09
Discussed patient care with: Nursing and Care Team
Subjective
Procedure
S/P Surgical aortic valve replacement [27 mm bioprosthetic valve]/CABG x 2 (In situ BURNS to LAD -with revision of BURNS to LAD bypass more distally, Ao to RSVG to RPDA)/Endoscopic harvest of the
right lower extremity for vein/Left atrial appendage exclusion [35 mm clip], by Dr. Morrell, 10/06/24, pod
-
Date of Service: October 09, 2024
Objective Data
-
Lab Results
10/09/24 03:43
10/09/24 03:43
PT 16.7 Sec (11.4-14.6) H 10/07/24 02:58
INR 1.32 10/07/24 02:58
APTT 34.7 Sec (23.4-35.0) 10/06/24 12:40
Vital Signs
Vital Signs
Temp Pulse Resp BP Pulse Ox
100 F 65 20 118/88 94
10/09/24 03:46 10/09/24 04:45 10/09/24 03:46 10/09/24 04:40 10/09/24 03:46
CT Intake/Output/Weight
10/08/24 10/08/24 10/09/24
06:59 18:59 06:59
Intake Total 360 / 1616 1160 / 1270 110 / 1270
Output Total 465 / 780 1000 / 2125 1125 / 2125
Balance -105 / 836 160 / -855 -1015 / -855
SaO2: 94
Physical Exam
-
General: Awake and AOx3
Cardiovascular: Regular rate & rhythm, No Murmurs and No Rub
Respiratory: Decreased Breath Sounds
Sternum: Stable
Incision: Clean, Dry and Intact
Extremities: Edema +1 (R>L (RLE with EVH, small-mod soft hematoma at the thigh))
Abdomen: soft, nondistended, nontender, + bowel sounds, + flatus
Data Reviewed
-
Lab Results: Results Reviewed
Medications: Active Meds Reviewed
Chest X-Ray: Report Reviewed and Image Reviewed
ECG: Report Reviewed and Image Reviewed
--- NOTE | 2024-10-09 06:15 | PTCARENOTE ---
Pt graciela on monitor. HR: 42. B/P: 141/74 (89). Pt resting in chair. Pt awake and oriented, no neurological deficits noted. No pain or discomfort. Will continue to monitor.
[2024-10-09] MEDS: TYLENOL 1000 MG PO ×2 (06:24→13:38)
[2024-10-09] MEDS: CALCIUM GLUCONATE 100 IV (06:24)
[2024-10-09] MEDS: SYMBICORT 160/4.5 MCG INHALER 2 PUFF INH (07:30)
[2024-10-09] MEDS: ProAmatine 5 MG PO ×2 (08:14→13:38)
[2024-10-09] MEDS: NEURONTIN 100 MG PO (08:14)
[2024-10-09] MEDS: PROTONIX 40 MG PO (08:14)
[2024-10-09] MEDS: BACTROBAN 2% OINTMENT 1 APPLIC NASAL (08:15)
[2024-10-09] MEDS: SENOKOT-S 1 TABLET PO (08:15)
[2024-10-09] MEDS: PLAVIX 75 MG PO (08:15)
[2024-10-09] MEDS: MAGNESIUM OXIDE 500 MG PO (08:15)
[2024-10-09] MEDS: LOW STRENGTH ASPIRIN 81 MG PO (08:15)
[2024-10-09] MEDS: TAPAZOLE 2.5 MG PO (08:15)
[2024-10-09] MEDS: LIDOCAINE 4% PATCH 1 PATCH TOPICAL (08:15)
[2024-10-09] MEDS: NSS IV (08:16)
--- NOTE | 2024-10-09 08:45 | PTCARENOTE ---
Assumed care of patient at 0700. Pt is awake, alert, and oriented. No complaints of pain at this time. Pt remains SR with HR 60's. BP 113/73 MAP 88. Pulse oximetry 98% on room air. Pt achieving 1500 with IS, continued use encouraged. Pt tolerating
PO diet. Voiding without issue in urinal. Midsternal incision approximated and IVÁN. Right leg incision approximated and IVÁN. Right groin puncture intact. Right groin and leg ecchymotic. Right IJ cordis in place with KVO. Pt currently resting OOB in
chair with call grimaldo within reach.
--- NOTE | 2024-10-09 11:30 | PTCARENOTE ---
Cordis d/c'd per order. V wire cut with CT PA, Nery. Pt ambulated around entire unit and completed steps without issue.
--- NOTE | 2024-10-09 11:56 | W.DCSUMMARY ---
Discharge Summary
Discharge Data
Date of Admission: 10/06/24
Date of Discharge: 10/09/24
Total time spent discharging patient (in min): 45
-
Pending Results: No
Hospital Course
Primary care physician:
None, patient instructed to establish primary care physician
Outpatient synthetic soil blocks pulper:
Dr. Burt Steward MD.
Inpatient consultants:
[facility]
Procedures:
1. Coronary artery bypass grafting x 2
(left internal mammary artery�left anterior descending artery-with revision of left internal mammary artery to left anterior descending artery bypass more distally, saphenous vein graft to right posterior
descending coronary artery)
2. Surgical aortic valve replacement [27 mm bioprosthetic valve]
3. Left atrial appendage exclusion [35 mm clip]
by Dr. Alan Morrell MD. 10/06/24
Primary Diagnosis:
1. Severe aortic valve stenosis, symptomatic
2. Multivessel coronary disease involving bifurcation of the LAD and diagonal
3. 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
4. Prediabetes (HgA1c 5.6)
5. Asthma
6. Extremely large thyroid goiter
7. CAD
8. Anxiety
9. Arthritis
10. Spinal stenosis
Secondary Diagnoses:
1. Severe aortic valve stenosis, symptomatic
2. Multivessel coronary disease involving bifurcation of the LAD and diagonal
3. 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
4. Prediabetes (HgA1c 5.6)
5. Asthma
6. Extremely large thyroid goiter
7. CAD
8. Anxiety
9. Arthritis
10. Spinal stenosis
11. Postoperative acute blood loss anemia
12. Postoperative orthostatic hypotension requiring midodrine
13 Postoperative asymptomatic bradycardia.
HPI:
This is a 69-year-old male with severe aortic valve stenosis. As part of his preoperative workup he underwent left heart cath which was positive for multivessel coronary disease. The appearance of his Left posterior lateral branch of the left side
system was extremely small and he would likely need just 2 bypass grafts as his right coronary artery was dominant and supplied a significant portion of the inferior wall. Multidisciplinary team discussion at our structural heart clinic deemed him
appropriate for surgical valve replacement with coronary artery bypass grafting with possible plans for future transcatheter aortic valve replacement in surgical aortic valve replacement. He had a relatively small annulus by transcatheter aortic
valve CAT scan, however, given the appearance of his bicuspid valve and my own individual measurement I felt that he had a much larger annulus. Patient was admitted to [facility] electively as an outpatient on the date described above for
the procedure described above.
Hospital course:
Patient tolerated procedure well. Patient remained intubated. He was transported from the operating room to the cardiovascular intensive care unit where he underwent his postoperative recovery. Patient was extubated in routine fashion on
postoperative day 0 at 1510.
On postoperative day #1 Levophed was weaned off. Patient's blood pressures remain labile and he was given a 500 cc bolus of LR. Patient's Sanborn-Bakari catheter, A-line, and Clay catheter were removed, and he was transitioned to telemetry.
Beta-blockade was held. Flomax was started secondary to Clay removal and difficulty urinating.
On postoperative day #2 the patient was orthostatic with a positive tilt test and was started on 5 mg 3 times daily of midodrine. Patient's mediastinal chest tubes were removed without issues. His pacing wires were kept due to bradycardia.
Beta-blockade was continued to be held.
On postoperative day #3 the patient had an episode of asymptomatic bradycardia overnight with rates in the 40s while he was sleeping. Amiodarone was put on hold and later discontinued. Beta-pam was continued to be held. Patient was seen by
attending physician on morning rounds. Patient performed stairs without difficulty and showered without becoming hypotensive. Patient's blood pressures remained stable on midodrine. Discussion was had with the patient, he felt well and wanted to
pursue going home on postoperative day #3. Morning chest x-ray showed no pleural effusions or pneumothorax. Pacing wires were cut at the skin without difficulty. Patient was medically cleared to be discharged to home on postoperative day #3.
He was discharged home on midodrine. He was instructed to monitor his blood pressures and notify the cardiothoracic surgery office if his blood pressures were 140 or greater. This will be reevaluated on follow-up with Dr. Morrell.
Home medication changes:
Please pay attention to the following medication changes:
Take Clopidogrel 75 mg daily-s/p CABG
Take Cyclobenzaprine 5 mg (1/2 of 10 mg tab) Q8H PRN for muscle spasm/moderate pain
Take Gabapentin 100 mg TID for post operative nerve pain
Take Lidocaine 4% patch 1 patch topical PRN-may cut in 1/2. Apply to affected area. Remove nightly
Take Midodrine 5 mg TID-Hypotension. Monitor your blood pressures at home if [address] Surgery Office
Take Protonix 40 mg daily-GI prophylaxis with Plavix
Take sennosides/docusate sodium 8.6-50 mg Q12 hours for bowel regimen-hold for loose stools/diarrhea
Please hold the following medications:
Methimazole 2.5 mg daily-hold until discuss resuming with Dr. Edel Ramirez MD endocrinology
Naproxen 220 mg every 12 hours as needed-hold until discussed with resuming at follow-up with Dr. Porsche MD.
Pseudoephedrine 120 mg as needed-hold until discussed resuming at follow-up with Dr. Porsche MD.
Please stop taking the following medications:
Amlodipine 2.5 mg at bedtime. Held due to labile blood pressure. Discuss resuming with Cardiology, Dr. Steward
Tamsulosin 0.4 mg at bedtime. Held due to labile blood pressures. Discuss resuming with Cardiology/Urology.
Discharge Plan
-
Patient Disposition: Home (Routine Discharge)
Discharge Diagnosis/Procedures: 1. Coronary artery bypass grafting x 2
(left internal mammary artery�left anterior descending artery-with revision of left internal mammary artery to left anterior descending artery bypass more distally, saphenous vein graft to right posterior descending coronary artery)
2. Surgical aortic valve replacement [27 mm bioprosthetic valve]
3. Left atrial appendage exclusion [35 mm clip]
Condition: Good
Diet: Low Fat and Low Cholesterol
Activity: No strenuous activity
Driving Restrictions: Not until seen by your Dr
Bathing Restrictions: OK to Shower
Other Services: Cardiac Rehab
Wound Care: Shower daily. Use soap & water.
No lotions, creams or powders on incision area.
Specialty Instructions: Weigh Daily- Call MD for wt gain/loss 3 lbs overnight/5 lbs in 1 week
Activity Restrictions/Additional Instructions:
ACTIVITY:
-No strenuous activity: no heavy lifting, pushing, pulling anything over 15 pounds for one month
-continue to use stairs as tolerated
DRIVING RESTRICTIONS:
-No driving for one month or until approved by your surgeon
WOUND CARE:
-Shower daily. Use soap & water.
-No lotions, creams or powders on incision area.
DIET:
-continue a low fat/low cholesterol diet.
-IF you are diabetic, continue carb controlled diet.
CARDIAC REHAB:
-Please make appointment to start in 5-6 weeks with your local hospital program. (See Cardiac Rehabilitation Discharge Booklet).
SPECIALTY INSTRUCTIONS:
-Weigh yourself daily. Call your physician for any weight gain/loss of 3 lbs overnight or 5 lbs in one week.
-REPORT any clicking noise or uneven appearance of your sternum to your surgeon immediately.
-If you smoke, you are instructed to quit. The [place] smoking hotline phone number is [phone]
Monitor your blood pressures while taking midodrine.
If blood pressures are 140 or greater please call the cardiothoracic surgery office.
We will provide further instructions regarding medication
Hold methimazole/Tapazole until discussed with Dr. Edel Ramirez MD endocrinology
Referrals:
CT Transitional Care Nurse [Outside] - in one to two days
(
The Cardiothoracic Transitional Care Nurse will call you to set up a visit in 1-2 days.)
[facility]. Cardiac Rehab [Outside]
(Cardiac Rehab Orientation appointment is on October @ 1:00pm.
The Cardiac Rehab gym is located on the first floor of the [facility].)
Burt Steward MD [Active] - 11/10/24 11:20 am
(Your appointment is at the [facility]
[address], [address] [facility])
[place]. [phone]
)
Alan Morrell MD [Active] - 10/30/24 3:00 pm
UNKNOWN - PT NOT,INTERVIEWE [Family Provider] -
Additional Discharge Medication Instructions: Please pay attention to the following medication changes:
Take Clopidogrel 75 mg daily-s/p CABG
Take Cyclobenzaprine 5 mg (1/2 of 10 mg tab) Q8H PRN for muscle spasm/moderate pain
Take Gabapentin 100 mg TID for post operative nerve pain
Take Lidocaine 4% patch 1 patch topical PRN-may cut in 1/2. Apply to affected area. Remove nightly
Take Midodrine 5 mg TID-Hypotension. Monitor your blood pressures at home if [address] or [address] Surgery Office
Take Protonix 40 mg daily-GI prophylaxis with Plavix
Take sennosides/docusate sodium 8.6-50 mg Q12 hours for bowel regimen-hold for loose stools/diarrhea
Please hold the following medications:
Methimazole 2.5 mg daily-hold until discuss resuming with Dr. Edel Ramirez MD endocrinology
Naproxen 220 mg every 12 hours as needed-hold until discussed with resuming at follow-up with Dr. Porsche MD.
Pseudoephedrine 120 mg as needed-hold until discussed resuming at follow-up with Dr. Porsche MD.
Please stop taking the following medications:
Amlodipine 2.5 mg at bedtime. Held due to labile blood pressure. Discuss resuming with Cardiology, Dr. Steward
Tamsulosin 0.4 mg at bedtime. Held due to labile blood pressures. Discuss resuming with Cardiology/Urology.
Prescriptions:
New
cyclobenzaprine 10 mg Tablet
5 mg PO Q8HPRN PRN (Reason: muscle spasm/moderate pain) Qty: 30 0RF
Rx Instructions:
Take 1/2 tab 5 mg Q8H PRN
lidocaine 4 % Adhesive Patch,Medicated
1 patch topical DAILY PRN (Reason: incisional pain ) Qty: 30 0RF
Rx Instructions:
Apply 1 patch daily chest/back for pain as needed. Remove nightly
gabapentin 100 mg Capsule
100 mg PO TID Qty: 30 0RF
Rx Instructions:
Take until empty and then stop. For post op nerve pain.
clopidogrel 75 mg Tablet
75 mg PO DAILY Qty: 30 1RF
midodrine 5 mg Tablet
5 mg PO TID@0800,1300,1800 Qty: 30 1RF
Rx Instructions:
Monitor BP, if BP 140 or > call CT Surgery office
pantoprazole 40 mg Tablet,Delayed Release (Dr/Ec)
40 mg PO DAILY Qty: 30 0RF
Rx Instructions:
GI prophylaxis with Plavix. Obtain refills from PCP/cardiology
Remove Patch [Remove Lidocaine Patch]
1 patch topical DAILY@2000 PRN (Reason: Incisional pain) Qty: 30 0RF
sennosides-docusate sodium 8.6-50 mg Tablet
1 tab PO Q12 Qty: 30 0RF
Rx Instructions:
Hold for loose stools/diarrhea
Continued
acetaminophen [Tylenol] 325 mg Tablet
650 mg PO Q4H PRN (Reason: pain)
ibuprofen [Advil] 200 mg Tablet
400 mg PO Q8H PRN (Reason: pain)
budesonide-formoterol [Symbicort] 160-4.5 mcg/actuation Hfa Aerosol Inhaler
2 puff INHALATION ONCE
aspirin 81 mg tablet,chewable
81 mg PO HS
albuterol sulfate 90 mcg/actuation Hfa Aerosol Inhaler
2 puff INHALATION Q6H PRN (Reason: asthma)
atorvastatin 40 mg tablet
40 mg PO QPM
Held
pseudoephedrine HCl [Sudafed 12 Hour] 120 mg Tablet Extended Release
120 mg PO PRN PRN (Reason: nasal congestion)
Hold Instructions: Hold until discussed with Dr. Morrell at follow-up
naproxen sodium [Aleve] 220 mg Tablet
220 mg PO Q12H PRN (Reason: pain)
Hold Instructions: Discuss with Dr. Morrell at follow up before resuming
methimazole 5 mg Tablet
2.5 mg PO DAILY
Hold Instructions: Hold until discussed with Dr. Edel Ramirez Md. Endocrinology
Discontinued
tamsulosin 0.4 mg Capsule
0.4 mg PO HS
amlodipine 2.5 mg tablet
2.5 mg PO HS
Discharge Orders:
Discharge Patient (As Directed); Ordered 10/09/24
Ordered By: Nery Martinez
Care Plan Goals
Care Plan Goals:
Problem: Readiness for enhanced knowledge related to diagnosis and treatment plan
Goal: Understand your diagnosis and treatment plan needs, including medications if applicable.
Instructions: Know your diagnosis, underlying causes and treatment plan options, including medications if applicable. Consult with your health care team to learn about your diagnosis and treatment plan, including medications if applicable.
Discharge Date and Time
Print Language: KHMER
--- NOTE | 2024-10-09 13:30 | PTCARENOTE ---
Pt showered, now dressed and awaiting for to review discharge instructions.
--- NOTE | 2024-10-09 15:00 | PTCARENOTE ---
Discharge instructions reviewed with pt and pt's . Questions addressed. Peripheral IV and tele pack removed. Pt stable at discharge.
--- NOTE | 2024-10-09 15:33 | W.PN.UPDATE ---
Update Note
Progress Note Update
Pacing wires cut at the skin without difficulty.
[2024-10-09 20:43] LABS: Hepatitis C Antibody Negative (Negative)
== END 2024-10-09 15:00 | disposition home or self-care (01) | DRG 220 ==
LOC: CVICU 05:03
PROVIDERS: Anesthesiology; Clinical Nurse Specialist Acute Care; ADMITTING PHYSICIAN Thoracic Surgery (Cardiothoracic Vascular Surgery); CONSULT PHYSICIAN Internal Medicine
PROC: 06BP4ZZ Excision of Right Saphenous Vein, Percutaneous Endoscopic Approach (ICD-10-PCS; 2024-10-06)
PROC: 021009W Bypass Coronary Artery, One Artery from Aorta with Autologous Venous Tissue, Open Approach (ICD-10-PCS; 2024-10-06)
PROC: B24BZZ4 Ultrasonography of Heart with Aorta, Transesophageal (ICD-10-PCS; 2024-10-06)
PROC: 02RF08Z Replacement of Aortic Valve with Zooplastic Tissue, Open Approach (ICD-10-PCS; 2024-10-06)
PROC: 02L70CK Occlusion of Left Atrial Appendage with Extraluminal Device, Open Approach (ICD-10-PCS; 2024-10-06)
PROC: 5A1221Z Performance of Cardiac Output, Continuous (ICD-10-PCS; 2024-10-06)
PROC: 02100Z9 Bypass Coronary Artery, One Artery from Left Internal Mammary, Open Approach (ICD-10-PCS; 2024-10-06)
DX: I35.0 Nonrheumatic aortic (valve) stenosis (principal); D62 Acute posthemorrhagic anemia; Q21.12 Patent foramen ovale; I30.8 Other forms of acute pericarditis; E87.1 Hypo-osmolality and hyponatremia; I25.10 Atherosclerotic heart disease of native coronary artery without angina pectoris; G25.0 Essential tremor; R73.03 Prediabetes; J45.909 Unspecified asthma, uncomplicated; M48.00 Spinal stenosis, site unspecified; M19.90 Unspecified osteoarthritis, unspecified site; F41.9 Anxiety disorder, unspecified; E04.9 Nontoxic goiter, unspecified; I95.1 Orthostatic hypotension; R00.1 Bradycardia, unspecified; R19.7 Diarrhea, unspecified; F12.90 Cannabis use, unspecified, uncomplicated; E87.70 Fluid overload, unspecified; E86.1 Hypovolemia; N40.0 Benign prostatic hyperplasia without lower urinary tract symptoms; Z79.82 Long term (current) use of aspirin; Z79.899 Other long term (current) drug therapy
CPT/HCPCS: 88305; 88311; 36415; 71045; 80048; 80053; 81003; 81015; 82248; 82330; 82565; 82805; 82810; 82947; 82962; 83036; 83735; 84132; 84302; 84520; 85014; 85018; 85025; 85027; 85049; 85610; 85730; 86803; 86850; 86900; 86901; 86920; 87070; 93005; 93306; 93312; 93320; 93325; 93880; 94002; 94640; J2916; P9045

== ENCOUNTER 2024-11-10 15:43 | Outpatient (RCR) | payer MEDICARE, OTHER, SELFPAY ==
[2024-11-11 10:12] LABS: HDL Cholesterol 66 mg/dl; LDL Cholesterol, Calculated 76 mg/dl; Total Cholesterol 153 mg/dl (50-199); Triglyceride 59 mg/dl (10-149); Very Low Density Lipoprotein 11 mg/dl (0-30)
== END 2024-11-10 23:59 | disposition home or self-care (01) ==
LOC: CRHB 15:43
PROVIDERS: ATTENDING PHYSICIAN Internal Medicine Cardiovascular Disease
DX: I25.10 Atherosclerotic heart disease of native coronary artery without angina pectoris (principal); Z95.1 Presence of aortocoronary bypass graft; Z95.2 Presence of prosthetic heart valve
CPT/HCPCS: 36415; 80061; G0422; G0423

== ENCOUNTER 2024-12-12 14:57 | Outpatient (RCR) | payer MEDICARE, OTHER, SELFPAY | END 2024-12-12 23:59 | disposition home or self-care (01) | LOC: CRHB 14:57 | PROVIDERS: ATTENDING PHYSICIAN Internal Medicine Cardiovascular Disease | DX: I25.10 Atherosclerotic heart disease of native coronary artery without angina pectoris (principal); Z95.1 Presence of aortocoronary bypass graft; Z95.2 Presence of prosthetic heart valve | CPT/HCPCS: G0422; G0423 ==

== ENCOUNTER 2024-12-31 15:28 | Outpatient (RCR) | payer MEDICARE, OTHER, SELFPAY | END 2024-12-31 23:59 | disposition home or self-care (01) | LOC: CRHB 15:28 | PROVIDERS: ATTENDING PHYSICIAN Internal Medicine Cardiovascular Disease | DX: Z95.1 Presence of aortocoronary bypass graft (principal); I25.10 Atherosclerotic heart disease of native coronary artery without angina pectoris (principal); Z95.2 Presence of prosthetic heart valve | CPT/HCPCS: 93797; 93798; G0422; G0423 ==

== ENCOUNTER 2025-02-09 15:26 | Outpatient (RCR) | payer MEDICARE, OTHER, SELFPAY | END 2025-02-09 23:59 | disposition home or self-care (01) | LOC: CRHB 15:26 | PROVIDERS: ATTENDING PHYSICIAN Internal Medicine Cardiovascular Disease | DX: Z95.1 Presence of aortocoronary bypass graft; I25.10 Atherosclerotic heart disease of native coronary artery without angina pectoris; Z95.2 Presence of prosthetic heart valve | CPT/HCPCS: G0422; G0423 ==

== ENCOUNTER 2025-02-16 14:00 | Outpatient (RCR) | payer MEDICARE, OTHER, SELFPAY | END 2025-02-16 18:15 | disposition home or self-care (01) | LOC: CRHB 14:00 | PROVIDERS: ATTENDING PHYSICIAN Internal Medicine Cardiovascular Disease | DX: I25.10 Atherosclerotic heart disease of native coronary artery without angina pectoris (principal); Z95.1 Presence of aortocoronary bypass graft; Z95.2 Presence of prosthetic heart valve | CPT/HCPCS: G0422; G0423 ==

== ENCOUNTER → 2025-03-11 14:22 | Outpatient (REF) | payer MEDICARE, OTHER, SELFPAY | LOC: HWRAD 14:22 | PROVIDERS: ATTENDING PHYSICIAN Internal Medicine Endocrinology, Diabetes & Metabolism | DX: E27.8 Other specified disorders of adrenal gland (principal) | CPT/HCPCS: 74150 ==

== ENCOUNTER → 2025-08-13 12:21 | Outpatient (REF) | payer MEDICARE, OTHER, SELFPAY | LOC: RAD 12:21 | PROVIDERS: ATTENDING PHYSICIAN Hospitalist | DX: R91.1 Solitary pulmonary nodule (principal) | CPT/HCPCS: 71250 ==

== ENCOUNTER → 2025-10-20 13:01 | Outpatient (REF) | payer MEDICARE, OTHER, SELFPAY | LOC: MRI 3T 13:01 | PROVIDERS: ATTENDING PHYSICIAN Surgery; FAMILY PHYSICIAN Hospitalist | DX: R97.20 Elevated prostate specific antigen [PSA] (principal) | CPT/HCPCS: 72197; A9575 ==